=== PATIENT | male | born 1955 | race Caucasian/White ===

== ENCOUNTER 2016-10-26 05:38 | Day surgery (SDC) | payer BC ==
[~2016-10-26] VITALS: Ht 170.2 cm; Wt 78.0 kg
[2016-10-26] VITALS (13 sets, daily range): BP systolic 142–161; BP diastolic 72–91; PULSE 68–83; RESP 16–20; TEMP 97.7–98.8; O2SAT 95–97
[2016-10-26] MEDS ORDERED: ASPI81CH CHEW (05:51)
[2016-10-26] MEDS ORDERED: VITA1000 PO (05:51)
[2016-10-26] MEDS ORDERED: FURO1TAB62 PO (05:51)
[2016-10-26] MEDS ORDERED: AZOR5TAB2 PO (05:51)
[2016-10-26 07:05] LABS: AUTOMATED NEUTROPHIL # 4.4 TH/MM3 (1.8-7.7); BASOPHIL # 0.1 TH/MM3 (0-0.2); BASOPHIL % 0.9 % (0.0-2.0); EOSINOPHIL # 0.2 TH/MM3 (0-0.4); HEMATOCRIT 43.2 % (39.0-51.0); HEMO FLAGS DIFF FINAL; LYMPH % 33.9 % (9.0-44.0); LYMPHOCYTE # 2.8 TH/MM3 (1.0-4.8); MEAN CELL VOLUME 96.1 FL (80.0-100.0); MEAN CORPUSCULAR HEMOGLOBIN 33.1 PG (27.0-34.0); MEAN CORPUSCULAR HGB CONC 34.4 % (32.0-36.0); MONO % 10.5 % (0.0-8.0); NEUT % 52.7 % (16.0-70.0); PLATELET COUNT 335 TH/MM3 (150-450); RED CELL DISTRIBUTION WIDTH 12.2 % (11.6-17.2); WHITE BLOOD COUNT 8.3 TH/MM3 (4.0-11.0)
[2016-10-26] MEDS ORDERED: HEPARIN-NS/PF INJ 500 ML ONE (07:10)
[2016-10-26 07:11] LABS: APTT (PATIENT) 26.9 SEC (24.3-30.1); INTERNATIONAL NORMALIZED RATIO 0.9 RATIO
[2016-10-26] MEDS ORDERED: MIDAZOLAM HCL 2 MG/2 ML VIAL ONE (07:25)
[2016-10-26 07:27] LABS: BICARBONATE 24.6 MEQ/L (21.0-32.0)
[2016-10-26] MEDS ORDERED: HEPARIN SODIUM - IV 10,000 UNITS/10 ML VIAL ONE (07:52)
[2016-10-26] MEDS ORDERED: TIROFIBAN INFUSION INJ 250 ML IV ONE (08:11)
[2016-10-26] MEDS ORDERED: CLOPIDOGREL 300 MG TAB ONE (08:14)
[2016-10-26] MEDS ORDERED: TIROFIBAN INFUSION INJ 250 ML IV SCH (08:21)
--- NOTE | 2016-10-26 08:29 | CATHPROC ---
[place] HIS Report Study Information Study Number Admission Scheduled Start Study Start [id number] Oct 26 2016 5:38AM 10/26/2016 Oct 26 2016 6:55AM [place] Service Cardiac Catheterization Admit Source Facility Department Other [facility] Physician and Clinical Staff Initial Wagner Noel Development Specialist Romario Botello,CROW Other cathlab, cathlab Recorder Rola Delgado,JUNIOR NETWORK ADMINISTRATOR TECH2 Scrub Jayce Dodson RCIS(BS) Procedures Performed Procedure Location (Site) Vessel Name Coronary Angiograms LCA Left Coronary Coronary Angiograms RCA Right Coronary Drug Eluting Inflatio LAD Mid Left Coronary LV Gram-hand inj. LV LV Ventricle PTCA LAD Mid Left Coronary Wire insertion Fem Art (right) Femoral Art Equipment Time Gear Tester Description Size Mfg Part Number Used/Scraped [id number] 07:52 [employer] WIRE, ASAHI PROWATER 180CM 180CM Used *[id number] CATHETER, FR5 SWAN YEFRI 07:15 MOGL FR 5 [id number] *[id number] Used MONITOR TRANSDUCER, TRUWAVE [id number] 07:15 [place] * Used W/STOCKCOCK *[id number] 538-420 *[id number] 538-421 *[id number] *[id number] 07:15 [employer]ely[employer] INDUSTRIES PACK, CCL CUSTOM * Used *[id number] 07:15 [employer]x PACER PEN, SKIN DUAL W/ RULER * Used *[id number] 07:56 [employer] BALLOON, 2.5 X 12MM EUPHORA 12MM Used *[id number] 08:05 [employer] STENT, 2.5 18 INTEGRITY 2.5 18 Used *[id number] 08:01 [employer] MEDICAL 30 LARISA INDEFLATOR Used *[id number] 07:40 [employer] MEDICAL SHEATH, FR5.5 PRELUDE 11CM FR 5 [id number] Used [id number] 07:52 [employer] MEDICAL SHEATH, FR6.5 PRELUDE 11CM FR 6.5 [id number] Used *[id number] 07:15 [employer] MEDICAL WIRE, 3MMJ .035 180CM 180CM Used *[id number] 07:15 NAMIC MANIFOLD, 4 PORT * Used *[id number] 07:15 [employer]COM[employer] OMNIPAQUE, 350 MG, 150ML 150ML [id number] Used [id number] 07:15 [employer] MEDICAL BLANKET,WARM AIR CCL * Used *[id number] 07:15 TERUMO MEDICAL SHEATH, FR4 TERUMO (10CM) FR 4 [id number] Used Equipment Model, Serial, Lot Number and Expiration Data Description Model Number Serial Number Lot Number Expiration Date SHEATH, FR6.5 PRELUDE 11CM [id number] 09-17-2019 STENT, 2.5 18 INTEGRITY [id number] 10-12-2017 History: Current Medications Medication Dosage/Unit Route Frequency Last Date/Time Taken LASIX ASA History: Allergies Allergy Reaction No Known Allergies History: Risk Factors Family History of Hypertension Dyslipidemia Previous OH Previous Heart Failure Premature CAD Yes No No No No Prior Valve Prior PCI Prior CABG Surgery No No No Cerebrovascular Peripheral Artery Chronic Lung On Dialysis Diabetes Disease Disease Disease No No No Yes No History: Symptoms/Diagnosis Selection Items SOB History: Stress Tests Stress or Imaging Studies Performed Yes Standard Exercise Stress Test No Stress Echo No Stress Test SPECT No Stress Test CMR Stress Test CMR Result Stress Test CMR Ischemia Risk/Extent Yes Positive High Cardiac CTA Coronary Calcium Score No No History: Other Current Smoker Method Quit Packs a Day Years Used Pack Years No Cigarettes 31 Years Ago 2 15 30 Labs Hgb (g/dl) Hct (%) RBC (MIL/MM3) WBC (l/cumm) Platelets (thousands) 12.00-18.00 37.00-55.00 4.80-6.20 4.80-10.80 140.00-450.00 14.9 43.2 4.5 8.3 335 Glucose (mg/dl) BUN (mg/dl) Creatinine (mg/dl) BUN:Creatinine (1:x) 60.00-110.00 8.00-20.00 0.10-9.00 10.00-20.00 107 17 1.1 15.5 Na (meq/l) K (meq/l) Cl (meq/l) CO2 (mmol/L) Ca (mg/dl) 138.00-146.00 3.80-5.10 101.00-111.00 23.00-30.00 9.00-10.50 130 4 94 24.6 8.8 PT (sec) PTT (sec) INR (PTT:PT) 9.40-11.40 25.10-32.70 0.50-2.00 10 26.9 0.9 Medication Medication Total Dose (Bolus/Oral) Medication Total Dosage/Unit 1% XYLOCAINE 20 mL AGGRASTAT BOLUS 37.5 meq/kg HEPARIN 5300 units PLAVIX 600 mg Medications (Bolus/Oral) Medication Time Given Dosage/Unit Administered By Reason 1% XYLOCAINE 10/26/2016 7:37:56 AM 20 mL Wagner Cook 20 mL 1% XYLOCAINE given in lab by Wagner Cook in Right Groin via Subcutaneous. Ordered by Wagner Sharma. HEPARIN 10/26/2016 7:53:17 AM 5300 units Romario Botello 5300 units HEPARIN given in lab by Romario Botello RN in Left Antecubital via Peripheral IV. Ordered by Wagner Cook. AGGRASTAT BOLUS 10/26/2016 8:15:43 AM 37.5 meq/kg Romario Botello 37.5 meq/kg AGGRASTAT BOLUS given in lab by Romaroi Botello RN in Left Antecubital via Peripheral IV. Amount given = 2853.75 meq. Ordered by Wagner Cook. PLAVIX 10/26/2016 8:18:30 AM 600 mg Romario Botello 600 mg PLAVIX given in lab by Romario Botello RN via Oral. Ordered by Wagner Cook. Medication (Drip) Medication Time Given Dosage/Unit Concentration/Unit Diluent (ml) Solution AGGRASTAT DRIP 10/26/2016 8:17:09 AM 0.148 mcg/kg/min 12.5 mg 250 NaCl .9 0.148 mcg/kg/min AGGRASTAT DRIP given in lab by Romario Botello RN in Left Antecubital via Peripheral IV. Pump/Drip Flow = 13.5 ml/hr using NaCl .9 with a concentration of 12.5 mg in 250 ml. Ordered by Wagner Cook. IV Solutions 10/26/2016 7:13:40 AM 0 mL (IV) 500 NaCl .9 IV Solutions given in lab by Romario Botello RN in Left Antecubital via Peripheral IV. Pump/Drip Flow = 20 ml/hr using NaCl .9. Ordered by Wagner Cook. Initial Case Assessment Cardiovascular HR NIBP 69 137/84 Edema Present Skin color Skin None Normal Warm Dry Circulatory - Right Pulses Dorsalis Pedis Femoral 3 3 Scale (0,1,2,3,4,d) Circulatory - Left Pulses Dorsalis Pedis Femoral 3 3 Scale (0,1,2,3,4,d) Neurological State Oriented to time-place- Alert Moves all extremities person Respiration - General Respiration Rate SpO2 (%) (B/min) 15 94 Final Case Assessment Cardiovascular HR NIBP 84 146/92 Edema Present Skin color Skin None Normal Warm Dry Circulatory - Right Pulses Dorsalis Pedis Femoral 3 3 Scale (0,1,2,3,4,d) Circulatory - Left Pulses Dorsalis Pedis Femoral 3 3 Scale (0,1,2,3,4,d) Neurological State Oriented to time-place- Alert Moves all extremities person Respiration - General Respiration Rate SpO2 (%) (B/min) 15 94 Chronological Log Time Study Chronological Log 7:00:09 Patient arrived via Bed. 7:06:10 Patient Name, D.O.B, / Armband Verified By R.N. 7:06:11 Consent signed by the physician and the patient and verified by the [facility] staff. Vitals capture started with the following parameters, Patient=Adult, Interval=15 min, Initial P uqoyqjq=829 mmHg, 7:13:03 Deflation Rate=5 mmHg 7:13:32 Pre-op and post- op instructions given; patient acknowledges understanding of instructions. 7:13:34 Patient has been NPO for More than 6Hrs. 7:13:35 NO Skin Breakdown- 7:13:36 Patient Warmer Placed on the Table. 7:13:39 A # 20 IV was noted in the Antecubital (left). Grade = 0 IV Solutions given in lab by Romario Botello, RN in Left Antecubital via Peripheral IV. Pump/Dri p Flow = 20 ml/hr using 7:13:40 NaCl .9. Ordered by Wagner Cook. 7:13:41 HR=69 bpm, JUVR=388/84 mmhg, SpO2=94.0 %, Resp=15 B/min, Pain=0, Sameer=10, Lindsay=2 7:13:41 History and physical on the chart or being dictated. Assessment: Initial Case, HR=69 BPM, FYIL=535/84 mmhg, Edema=None, Color=Normal, Skin = Warm, D ry Right Pulses: Robbie Ped=3, Femoral=3 7:13:43 Left Pulses: Robbie Ped=3, Femoral=3 Neurological: State=Alert, Ox3, GOMEZ Respiration: Resp=15 B/min, SpO2=94 % 7:18:40 HR=67 bpm, ABTB=809/80 mmhg, SpO2=93.0 %, Resp=12 B/min, Pain=0, Sameer=10, Lindsay=2 7:19:25 Bilateral groins prepped with 2% chlorhexidine, and with a 3 min. waiting time. 7:23:39 HR=69 bpm, IOLT=464/85 mmhg, SpO2=93.0 %, Resp=16 B/min, Pain=0, Sameer=10, Lindsay=2 7:25:09 Pressure channel 1 zeroed. 7:28:42 HR=73 bpm, HNXT=701/76 mmhg, SpO2=91.0 %, Resp=11 B/min, Pain=0, Sameer=10, Lindsay=2 7:29:08 Reference ECG taken 7:33:43 HR=62 bpm, DDTQ=455/77 mmhg, SpO2=91.0 %, Resp=11 B/min, Pain=0, Sameer=10, Lindsay=2 Time Out. Correct patient, correct procedure,correct physician, ,power injector not loaded with contrast with surgical 7:37:38 team present. Time Out Concurred by MD, individual staff in procedure 7:37:54 Case Start 20 mL 1% XYLOCAINE given in lab by Wagner Cook in Right Groin via Subcutaneous. Ordered by Joey, 7:37:56 Wagner. 7:38:36 HR=72 bpm, DCRM=091/82 mmhg, SpO2=93.0 %, Resp=14 B/min, Pain=0, Sameer=10, Lindsay=2 7:39:20 Access site was Right Femoral Vein. A SHEATH, FR5.5 PRELUDE 11CM FR 5 was advanced into the Fem Vein (right) using the Modified Seld eva 7:39:30 technique. 7:41:19 Access site was Left Femoral Artery. 7:41:24 A SHEATH, FR4 TERUMO (10CM) FR 4 was advanced into the Fem Art (right) using the Modified Se boyd technique. 7:41:47 A CATHETER, FR5 SWAN YEFRI MONITOR FR 5 was inserted via Fem Vein (right) Recorded Pressure: PCW, HR=70, Condition=Condition 1 7:42:49 (Pulmonary Capillary Wedge) PCW 18/16/15 Recorded Pressure: MPA, HR=76, Condition=Condition 1 7:43:08 (Main Pulmonary Artery) MPA 37/17/25 7:43:43 HR=77 bpm, WVCZ=763/75 mmhg, SpO2=92.0 %, Resp=12 B/min, Pain=0, Sameer=10, Lindsay=2 Recorded Pressure: RV, HR=72, Condition=Condition 1 7:43:58 (Right Ventricle) RV 40/6/12 Recorded Pressure: RA, HR=82, Condition=Condition 1 7:44:21 (Right Atrium) RA 11// 7:45:16 Saturation: Site=Ao (Aorta) , O2=95.3 %, Hgb=14.9 gm/dl, Condition=Condition 1. Used in calc ulation. 7:45:32 Mclain Yefri Catheter Removed 7:45:34 Saturation: Site=PA (Pulmonary Artery) , O2=72.6 %, Hgb=14.9 gm/dl, Condition=Condition 1. U sed in calculation. 7:45:56 Saturation: Site=RA (Right Atrium) , O2=74.7 %, Hgb=14.9 gm/dl, Condition=Condition 1. Used in calculation. A JR 4.0 INFINITI CATHETER FR 4 was advanced over a wire. OMNIPAQUE, 350 MG, 150ML 150ML was use d for 7:46:25 injections. Recorded Pressure: LV, HR=77, Condition=Condition 1 7:47:17 (Left Ventricle) LV 136/7/15 Recorded Pressure: LV, Ao, HR=70, Condition=Condition 1 7:47:33 (Left Ventricle) LV 131/5/22, (Aorta) Ao 129/68/93 7:47:35 The LV was manually injected with 10 cc's and visualized. OMNIPAQUE, 350 MG, 150ML 150ML use d. 7:48:10 The RCA was injected and visualized at various angles. OMNIPAQUE, 350 MG, 150ML 150ML used. Recorded Pressure: Ao, HR=75, Condition=Condition 1 7:48:14 (Aorta) Ao 135/77/101 7:48:42 HR=88 bpm, HWIC=573/85 mmhg, SpO2=92.0 %, Resp=12 B/min, Pain=0, Sameer=10, Lidnsay=2 7:49:20 Catheter was removed A JL 4.0 INFINITI CATHETER FR 4 was advanced over a wire. OMNIPAQUE, 350 MG, 150ML 150ML was use d for 7:49:42 injections. 7:50:05 The LCA was injected and visualized at various angles. OMNIPAQUE, 350 MG, 150ML 150ML used. 7:52:36 Catheter was removed A XB 3.5 GUIDE CATHETER FR 6 was advanced over a wire. OMNIPAQUE, 350 MG, 150ML 150ML was used f or 7:52:37 injections. A SHEATH, FR6.5 PRELUDE 11CM FR 6.5 was exchanged in the Fem Art (right). This was necessary in order for 7:53:13 catheter support. 5300 units HEPARIN given in lab by Romario Botello, RN in Left Antecubital via Peripheral IV. Ord ered by Joey, 7:53:17 Wagner. 7:53:43 HR=81 bpm, ECIX=337/84 mmhg, SpO2=93.0 %, Resp=14 B/min, Pain=0, Sameer=10, Lindsay=2 7:56:11 A WIRE, ASAHI PROWATER 180CM 180CM was inserted via Fem Art (right). 7:57:14 Interventional wire has crossed the lesion 7:58:21 A BALLOON, 2.5 X 12MM EUPHORA 12MM was inserted over WIRE, ASAHI PROWATER 180CM 180CM via th e LAD Mid. 7:58:42 XK=538 bpm, RCWP=070/78 mmhg, SpO2=93.0 %, Resp=12 B/min, Pain=0, Sameer=10, Lindsay=2 7:59:02 Activated Clotting Time Drawn A BALLOON, 2.5 X 12MM EUPHORA 12MM over a WIRE, ASAHI PROWATER 180CM 180CM in the LAD Mid was in flated 8:00:36 using a 30 LARISA INDEFLATOR at 6 larisa for 10 sec. A BALLOON, 2.5 X 12MM EUPHORA 12MM over a WIRE, ASAHI PROWATER 180CM 180CM in the LAD Mid was in flated 8:01:45 using a 30 LARISA INDEFLATOR at 5 larisa for 10 sec. A BALLOON, 2.5 X 12MM EUPHORA 12MM over a WIRE, ASAHI PROWATER 180CM 180CM in the LAD Mid was in flated 8:02:27 using a 30 LARISA INDEFLATOR at 5 larisa for 10 sec. A BALLOON, 2.5 X 12MM EUPHORA 12MM over a WIRE, ASAHI PROWATER 180CM 180CM in the LAD Mid was in flated 8:02:59 using a 30 LARISA INDEFLATOR at 10 larisa for 7 sec. 8:03:43 HR=74 bpm, HDEE=209/89 mmhg, SpO2=93.0 %, Resp=14 B/min, Pain=0, Sameer=10, Lindsay=2 8:03:43 Balloon Removed. 8:04:36 ACT (Normal Range 90-180) = 284 A STENT, 2.5 18 INTEGRITY 2.5 18 was advanced through a XB 3.5 GUIDE CATHETER FR 6 over a WIRE, ASAHI 8:04:53 PROWATER 180CM 180CM. A STENT, 2.5 18 INTEGRITY 2.5 18 was deployed using a 30 LARISA INDEFLATOR at 10 atmospheres for 10 seconds in 8:05:55 the LAD Mid. 8:06:33 Delivery device removed 8:07:07 Wire removed 8:07:08 Catheter was removed PCI QA completed: Pre-Vinnie - 3, Post Vinnie - 3, Type - ~TYPE~, Length - 16 mm, Morphology - ~MORP HOLOGY~, 8:07:27 Indications - Lesion > 50 non-stem, Pre-Stenosis - 95% and Post Stenosis - 0%. 8:07:49 PCI QA obtained from Inventory Management Specialist 8:07:52 Case End 8:08:08 Catheter(s) removed without difficulty 8:08:10 In the Fem Art (right) the SHEATH, FR6.5 PRELUDE 11CM FR 6.[address] by Wagner Pacheco. 8:08:20 In the Fem Vein (right) the SHEATH, FR5.5 PRELUDE 11CM FR [address] by Wagner Cook. 8:08:42 HR=80 bpm, BLTH=467/88 mmhg, SpO2=94 %, Resp=12 B/min, Pain=0, Sameer=10, Lindsay=2 8:13:41 HR=84 bpm, OILB=642/92 mmhg, SpO2=94.0 %, Resp=15 B/min, Pain=0, Sameer=10, Lindsay=2 Assessment: Final Case, HR=84 BPM, MPDG=719/92 mmhg, Edema=None, Color=Normal, Skin = Warm, Dry Right Pulses: Robbie Ped=3, Femoral=3 8:15:24 Left Pulses: Robbie Ped=3, Femoral=3 Neurological: State=Alert, Ox3, GOMEZ Respiration: Resp=15 B/min, SpO2=94 % 8:15:34 Vitals capture stopped. 37.5 meq/kg AGGRASTAT BOLUS given in lab by Romario Botello RN in Left Antecubital via Periphera l IV. Amount given = 8:15:43 2853.75 meq. Ordered by Wagner Cook. 0.148 mcg/kg/min AGGRASTAT DRIP given in lab by Romario Botello RN in Left Antecubital via Perip heral IV. Pump/Drip 8:17:09 Flow = 13.5 ml/hr using NaCl .9 with a concentration of 12.5 mg in 250 ml. Ordered by Wagner Cook. 8:17:42 A Left and Right Heart Cath was performed. 8:17:47 Contrast Scanned 8:17:50 Implantable Device card placed in patient's chart. 8:17:51 Bedside Report will be given. 8:18:06 Clinical correlaton risk stratification. 8:18:30 600 mg PLAVIX given in lab by Romario Botello RN via Oral. Ordered by Wagner Cook. 8:18:39 Patient moved to carrier clinic End Study - Contrast Media Used In Study Contrast Total Opened (mL) Total Used (mL) Total Wasted (mL) Omnipaque 150 150 0 End Study - Maximum Contrast Load Max Contrast Load (mL) 345.9 End Study - Radiation Exposure Fluoro Time (minutes) 7.7 End Study - Patient Disposition Complications Transferred To Interventional Outcome No Telemetry Bed successful
[2016-10-26] MEDS ORDERED: SODIUM CHLORIDE 0.9% FLUSH 10 ML FLUSH IV FLUSH PRN (08:30)
[2016-10-26] MEDS ORDERED: MISC INFORMATION XX ONE (08:30)
[2016-10-26] MEDS ORDERED: CLOPIDOGREL 300 MG TAB PO ONE (09:00)
[2016-10-26] MEDS ORDERED: ASPIRIN 81 MG CHEW TAB PO SCH (09:00)
[2016-10-26] MEDS ORDERED: LORazepam 2 MG/ML VIAL ONE (10:31)
[2016-10-26] MEDS ORDERED: IOHEXOL 350 MG/ML 100 ML BTL (for Cath Lab) OTHER ONE (10:43)
[2016-10-26] MEDS ORDERED: IOHEXOL 350 MG/ML 50 ML BTL (for Cath Lab) OTHER ONE (10:43)
[2016-10-26] MEDS ORDERED: LORazepam 2 MG/ML VIAL IV PUSH ONE (11:45)
--- NOTE | 2016-10-26 16:49 | EKG ---
Date Performed: 10/26/2016 Time Performed: 09:38:26 PTAGE: 61 years EKG: Sinus arrhythmia Low QRS voltages in limb leads Borderline ECG PREVIOUS TRACING : 10/26/2016 06.17 Compared to prior tracing no significant change DOCTOR: Kike White Interpretating Date/Time 10/26/2016 16:48:43
--- NOTE | 2016-10-26 17:18 | EKG ---
Date Performed: 10/26/2016 Time Performed: 06:17:38 PTAGE: 61 years EKG: Sinus rhythm Rightward axis Low QRS voltages in limb leads Borderline ECG NO PREVIOUS TRACING DOCTOR: Kike White Interpretating Date/Time 10/26/2016 17:17:50
[2016-10-26] MEDS: SODIUM CHLORIDE 0.9% FLUSH 10 ML FLUSH IV FLUSH SCH (20:56)
[2016-10-26] MEDS: CARVEDILOL 3.125 MG TAB PO SCH (20:56)
[2016-10-26] MEDS ORDERED: ATORVASTATIN 10 MG TAB PO SCH (21:00)
--- NOTE | 2016-10-26 21:28 | MA ---
cc: MOSES RODARTE M.D. DATE 10/26/16 PROCEDURE PERFORMED Right heart catheterization, left heart catheterization, left ventriculography, coronary angiography and PCI bare metal stent of the mid-LAD. INDICATION Large fixed defect in the anterior wall and inferoseptal wall, EF 79% by gated SPECT, high-risk nuclear stress test, anginal equivalent, unstable angina. [place] Cardiovascular Society Class III angina. [place] Heart Association class III congestive heart failure and coronary artery disease. PROCEDURE IN DETAIL The patient was brought to the cardiac catheterization laboratory, prepped and draped in the usual sterile fashion. 10 cc of 1% lidocaine was used to locally anesthetize the right common femoral artery and right common femoral vein. 5-[place] sheath placed in the right common femoral vein, 4-[place] sheath placed in the right common femoral artery. Right heart catheterization was performed first with the following findings: Pulmonary capillary wedge pressure 18/16-15. PA pressure 37/17-25. RV pressure 40/6-12. RA pressure 11/10-9. The FA sat 95.3% on room air. PA sat 72.6 on room air. RA sat 74.7% on room air. The cardiac output by Seven 5.1 liters per minute. Cardiac index by Seven 2.7 liters per meter squared per minute and SVR 1440.6 dynes. Left heart catheterization was then performed with a 4-Saudi Arabian JR-4 and JL-4 diagnostic catheter with the following findings: LV pressures 130/16-17. Ejection fraction is 60%. Right coronary is dominant, has a proximal 70% stenosis. The left main coronary artery has no significant disease angiographically. Left circumflex has no significant disease angiographically. Ramus intermedius vessel is a large vessel approaching apex. No significant disease angiographically. First obtuse marginal vessel is a small vessel, tortuous with no significant disease angiographically. Remainder of the AV groove left circumflex vessel was a small vessel with no significant obstructive disease. LAD has an ostial of 20% stenosis. The mid segment has a long 95% stenosis just after the first diagonal artery. LAD is large and transapical. First diagonal artery is a medium-sized vessel with an ostial of 40-50% stenosis. It is a very tortuous vessel with a 90 degrees bend off the LAD and then within 8 mm a secondary 90 degrees bend. 4-Saudi Arabian sheath exchanged for a 6-Saudi Arabian sheath. 70 cc of heparin was given, ACT was 284. 6-Saudi Arabian XB 3.5 guide, 0.014 Prowater guidewire and a 2512 Euphora balloon were used to predilate the lesion four inflations up to 7 atmospheres up to 20 seconds, then placed a 215 18 integrity stent back to the first diagonal artery for one inflation 10 atmospheres for 20 seconds. Stenosis went from 95% to 0% with ROSY-III flow. Also note ____ deployed the balloon across the lesion, there was no flow of dye around the balloon, again suggesting high-grade lesion. CONCLUSION 1. [place] Heart Association class III symptoms, anginal equivalent unstable angina. [place] Cardiovascular Society class III symptoms, high-risk nuclear stress test, large fixed defect in the anterior wall with culprit long 95% stenosis in the mid-LAD. 2. Otherwise, 70% stenosis in the proximal right coronary artery which is the dominant vessel. 3. Normal LV systolic function, ejection fraction 60%. 4. Mildly elevated right heart pressures as detailed above. 5. Successful PCI bare metal stent of the mid-LAD from 95% to 0% with ROSY III flow. 6. Recommend Plavix at 600 milligrams p.o., ___ 75 milligrams a day for 12 to 15 months, aspirin 162 milligrams daily. Aggrastat drip per protocol. Will also evaluate the patient's lipids and treat ____ guidelines. MD TREVOR Fulton/JAYESH /8:15 AM /8:58 PM
[2016-10-27] VITALS (9 sets, daily range): BP systolic 123–145; BP diastolic 71–75; PULSE 69–78; RESP 18; TEMP 98.1–98.6; O2SAT 94–97
[2016-10-27 04:30] LABS: AUTOMATED NEUTROPHIL # 7.7 TH/MM3 (1.8-7.7); BASOPHIL # 0.1 TH/MM3 (0-0.2); BASOPHIL % 1.1 % (0.0-2.0); EOSINOPHIL # 0.1 TH/MM3 (0-0.4); EOSINOPHIL % 0.5 % (0.0-4.0); HEMO FLAGS DIFF FINAL; LYMPH % 14.5 % (9.0-44.0); LYMPHOCYTE # 1.5 TH/MM3 (1.0-4.8); MEAN CELL VOLUME 95.5 FL (80.0-100.0); MEAN CORPUSCULAR HEMOGLOBIN 33.8 PG (27.0-34.0); MEAN CORPUSCULAR HGB CONC 35.4 % (32.0-36.0); MONO % 9.6 % (0.0-8.0); NEUT % 74.3 % (16.0-70.0); PLATELET COUNT 273 TH/MM3 (150-450); RED BLOOD COUNT 3.77 MIL/MM3 (4.50-5.90); RED CELL DISTRIBUTION WIDTH 12.2 % (11.6-17.2); WHITE BLOOD COUNT 10.3 TH/MM3 (4.0-11.0)
[2016-10-27 05:01] LABS: BICARBONATE 24.1 MEQ/L (21.0-32.0); POTASSIUM 4.2 MEQ/L (3.5-5.1)
[2016-10-27] MEDS: CARVEDILOL 3.125 MG TAB PO SCH (08:38)
[2016-10-27] MEDS: SODIUM CHLORIDE 0.9% FLUSH 10 ML FLUSH IV FLUSH SCH (09:00)
[2016-10-27] MEDS ORDERED: CLOPIDOGREL 75 MG TAB PO SCH (09:00)
[2016-10-27] MEDS ORDERED: ATOR40TA16 PO (10:58)
[2016-10-27] MEDS ORDERED: ASPI81CH CHEW (10:58)
[2016-10-27] MEDS ORDERED: CLOP75TA PO (10:58)
--- NOTE | 2016-10-28 09:51 | EKG ---
Date Performed: 10/27/2016 Time Performed: 06:37:02 PTAGE: 61 years EKG: Sinus rhythm Rightward axis Low QRS voltages in limb leads Borderline ECG PREVIOUS TRACING : 10/26/2016 09.38 DOCTOR: Antonio Kerns Interpretating Date/Time 10/28/2016 09:40:55
== END 2016-10-27 11:12 | disposition home or self-care (01) ==
LOC: HDOC 05:38 → HDIC 05:38 → HCIS 12:03 → HDOC 10-27 11:12
PROVIDERS: ATTEND Internal Medicine Interventional Cardiology
DX: I25.110 Atherosclerotic heart disease of native coronary artery with unstable angina pectoris (principal); I50.9 Heart failure, unspecified; I45.4 Nonspecific intraventricular block; J44.9 Chronic obstructive pulmonary disease, unspecified; I10 Essential (primary) hypertension; Z01.818 Encounter for other preprocedural examination
CPT/HCPCS: 80048; 80061; 82550; 82810; 85025; 85610; 85730; 92928; 93005; 93460; C1725; C1769; C1876; C1887; C1893; J1644; J2060; J2250; J3010; J3246; Q9967

== ENCOUNTER 2018-01-06 08:37 | Inpatient (IN) ==
[2018-01-06] MEDS ORDERED: Pantoprazole Inj 40 MG Vial IV.PUSH ONE (09:11)
[2018-01-06] MEDS ORDERED: Sod Chloride 0.9% Inj 1,000 ML IV.SIG ONE (09:11)
[2018-01-06 09:37] LABS: Baso # (Auto) 0.1 th/mm3 (0.0-0.2); Baso % (Auto) 0.5 % (0.0-2.0); Eos % (Auto) 0.1 % (0.0-4.0); Hematocrit 26.1 % (39.0-51.0); Hemoglobin 8.6 gm/dL (13.0-17.0); Mean Corpuscular HGB Conc 32.8 % (32.0-36.0); Mean Corpuscular Hemoglobin 31.3 pg (27.0-34.0); Mean Corpuscular Volume 95.4 fL (80.0-100.0); Mean Platelet Volume 7.6 fL (7.0-11.0); Mono # (Auto) 1.4 th/mm3 (0.0-0.9); Mono % (Auto) 7.4 % (0.0-8.0); Neut # (Auto) 14.8 th/mm3 (1.8-7.7); Platelet Count 351 th/mm3 (150-450); Red Blood Count 2.74 mil/mm3 (4.50-5.90); Red Cell Distribution Width 16.8 % (11.6-17.2); White Blood Count 18.3 th/mm3 (4.0-11.0)
--- NOTE | 2018-01-06 09:42 | ED ---
HPI General Chief Complaint: Syncope Stated Complaint: medical Time Seen by Provider: 01/06/18 09:11 Source: patient and EMS Mode of arrival: EMS Limitations: no limitations History of Present Illness HPI narrative: 62-year-old male patient with history of alcoholism, atrial fibrillation, presents to the ER today brought in by EMS because he states he has been feeling well for several days, running fevers, had an episode of vomiting last night, diarrhea with dark stools for the last 2 days, feeling dizzy, and this morning had a syncopal episode. He denies any chest pains, current shortness of breath, abdominal pains, or other symptoms. He states he is feeling fairly lightheaded still. He had a episode of incontinence with the episode. He states that he did not drink today. He states he does feel shaky, but has not had seizures in the past. Related Data Allergies Allergy/AdvReac Type Severity Reaction Status Date / Time No Known Allergies Allergy Uncoded 10/26/16 05:50 Review of Systems ROS: all other systems reviewed are negative [facility] Medical History Medical History A-fib (Acute) Emphysema of lung (Acute) HTN (hypertension) (Acute) Surgical History Surgical History No history of previous surgery (Acute) Stented coronary artery (Acute) Social History Social History Substance History: No History of Abuse Smoking Status: Former smoker How Often Do You Have a Drink Containing Alcohol: 4 or more times a week Recent Travel in [facility] within the Last 8 Weeks: No Recent Out of Country Travel within the Last 8 Weeks: No Immunization History Tetanus Immunization: Unsure Exam Narrative Exam Narrative: GENERAL: Well-developed elderly white male patient currently in moderate distress. Awake and oriented 3. SKIN: Focused skin assessment warm/dry. HEAD: Atraumatic. Normocephalic. EYES: Pupils equal and round. No scleral icterus. No injection or drainage. Conjunctiva is pale. ENT: No nasal bleeding or discharge. Mucous membranes pink and moist. NECK: Trachea midline. No JVD. Supple. CARDIOVASCULAR: Irregularly irregular. RESPIRATORY: No accessory muscle use. Clear to auscultation. Breath sounds equal bilaterally. GASTROINTESTINAL: Abdomen soft, non-tender, nondistended. Hepatic and splenic margins not palpable. MUSCULOSKELETAL: No obvious deformities. No clubbing. No cyanosis. No edema. RECTAL EXAM: No masses or tenderness, stool is dark, Hemoccult positive. NEUROLOGICAL: Awake and alert. No obvious cranial nerve deficits. Motor grossly within normal limits. Normal speech. PSYCHIATRIC: Appropriate mood and affect; insight and judgment normal. Procedures Hemaprompt Stool Procedural Steps Taken: specimen placed in appropriate test area, developer placed on specimen and control areas and controls appropriately positive and negative Hemaprompt Stool Result: positive Course Initial Documented Vital Signs Temperature 97.5 F L 01/06/18 08:46 Pulse Rate 95 H 01/06/18 08:46 Respiratory Rate 26 H 01/06/18 08:46 Blood Pressure 131/61 01/06/18 08:46 Pulse Oximetry 99 01/06/18 08:46 Last Documented Vital Signs Temperature 97.5 F L 01/06/18 08:46 Pulse Rate 95 H 01/06/18 08:46 Respiratory Rate 26 H 01/06/18 08:46 Blood Pressure 131/61 01/06/18 08:46 Pulse Oximetry 99 01/06/18 08:46 Medical Decision Making MDM Narrative Medical decision making narrative: CT other and was negative for any signs of acute intracranial injuries. Patient is Hemoccult positive, and lab work shows low hemoglobin compared to previous hemoglobins, 2 units of PRBCs were ordered for the patient. Patient denied being on any blood thinners. Protonix was also given in the ER. The rest of the lab work was fairly unremarkable. At this point, plan would be to admit the patient for further treatment. Case was discussed with hospitalist service, Dr. Sun, for admission. Medical Screen Exam Complete: Yes Emergency Medical Condition: Yes Differential Diagnosis Differential Diagnosis: GI bleed versus dehydration versus sepsis versus intracranial injuries Lab Data Result diagrams: 01/06/18:01/06/18:20 Lab Results 01/06/18 01/06/18 01/06/18 Range/Units :06 02: 09:20 WBC 18.3 H (4.0-11.0) th/mm3 RBC 2.74 L (4.50-5.90) mil/mm3 Hgb 8.6 L (13.0-17.0) gm/dL Hct 26.1 L (39.0-51.0) % MCV 95.4 (80.0-100.0) fL MCH 31.3 (27.0-34.0) pg MCHC 32.8 (32.0-36.0) % RDW 16.8 (11.6-17.2) % Plt Count 351 (150-450) th/mm3 MPV 7.6 (7.0-11.0) fL Neut % (Auto) 81.0 H (16.0-70.0) % Lymph % (Auto) 11.0 (9.0-44.0) % Bell % (Auto) 7.4 (0.0-8.0) % Eos % (Auto) 0.1 (0.0-4.0) % Baso % (Auto) 0.5 (0.0-2.0) % Neut # (Auto) 14.8 H (1.8-7.7) th/mm3 Lymph # (Auto) 2.0 (1.0-4.8) th/mm3 Bell # (Auto) 1.4 H (0.0-0.9) th/mm3 Eos # (Auto) 0.0 (0.0-0.4) th/mm3 Baso # (Auto) 0.1 (0.0-0.2) th/mm3 WBC Differential . Differential Comment Auto diff final PT 11.4 (9.8-11.6) sec INR 1.1 Ratio APTT 19.1 L (24.3-30.1) sec Sodium 137 (136-145) meq/L Potassium 3.9 (3.5-5.1) meq/L Chloride 103 (98-107) meq/L Carbon Dioxide 20.1 L (21.0-32.0) meq/L Anion Gap 14 (5-15) meq/L BUN 88 H (7-18) mg/dL Creatinine 1.89 H (0.60-1.30) mg/dL Estimated GFR 36 L (>89) mL/min Random Glucose 145 H (74-106) mg/dL Calcium 8.2 L (8.5-10.1) mg/dL Total Bilirubin 0.3 (0.2-1.0) mg/dL AST 44 H (15-37) U/L ALT 41 (12-78) U/L Alkaline Phosphatase 69 (45-117) U/L Troponin I Less than 0.02 L (0.02-0.05) ng/mL Total Protein 5.6 L (6.4-8.2) g/dL Albumin 2.8 L (3.4-5.0) g/dL Blood Type Blood Type Recheck Antibody Screen 01/06/18 Range/Units 09:20 WBC (4.0-11.0) th/mm3 RBC (4.50-5.90) mil/mm3 Hgb (13.0-17.0) gm/dL Hct (39.0-51.0) % MCV (80.0-100.0) fL MCH (27.0-34.0) pg MCHC (32.0-36.0) % RDW (11.6-17.2) % Plt Count (150-450) th/mm3 MPV (7.0-11.0) fL Neut % (Auto) (16.0-70.0) % Lymph % (Auto) (9.0-44.0) % Bell % (Auto) (0.0-8.0) % Eos % (Auto) (0.0-4.0) % Baso % (Auto) (0.0-2.0) % Neut # (Auto) (1.8-7.7) th/mm3 Lymph # (Auto) (1.0-4.8) th/mm3 Bell # (Auto) (0.0-0.9) th/mm3 Eos # (Auto) (0.0-0.4) th/mm3 Baso # (Auto) (0.0-0.2) th/mm3 WBC Differential Differential Comment PT (9.8-11.6) sec INR Ratio APTT (24.3-30.1) sec Sodium (136-145) meq/L Potassium (3.5-5.1) meq/L Chloride (98-107) meq/L Carbon Dioxide (21.0-32.0) meq/L Anion Gap (5-15) meq/L BUN (7-18) mg/dL Creatinine (0.60-1.30) mg/dL Estimated GFR (>89) mL/min Random Glucose (74-106) mg/dL Calcium (8.5-10.1) mg/dL Total Bilirubin (0.2-1.0) mg/dL AST (15-37) U/L ALT (12-78) U/L Alkaline Phosphatase (45-117) U/L Troponin I (0.02-0.05) ng/mL Total Protein (6.4-8.2) g/dL Albumin (3.4-5.0) g/dL Blood Type B Positive Blood Type Recheck Required Antibody Screen Negative Imaging Data Radiologist's impression: Head CT 01/06/18 09:11 CONCLUSION: No acute intracranial abnormality is identified. . Chest X-Ray 01/06/18 09:14 CONCLUSION: 1. Background changes suggesting a severe emphysema with interstitial changes at the lung bases. 2. Questionable 14 mm nodule in the right lower lung zone. This should be further evaluated with chest CT at some point to evaluate if this represents a true nodule versus overlying bronchovascular structures. Discharge Plan Discharge Disposition Patient Disposition: 30 Still Patient Discharge Condition Condition: Stable Discharge Details Anticipated Discharge Date: 01/06/18 Diagnosis: GI bleed, Anemia, Syncope Physicians Team ED Provider: Kiley Agrawal Primary Care Provider: Casey Egan III Attending Provider: La Sun Other Providers: Marquis Porter Discharge Interventions Interventions: Vital Signs Last Done: 01/06/18 08:46 Status ED Status: Admitted Patient
--- NOTE | 2018-01-06 09:47 | CT ---
EXAM DATE: 01/06/2018 9:42 AM EDT AGE/SEX: 62 years / Male INDICATIONS: Syncopal episode. Laceration to forehead. Nausea, vomiting, diarrhea since yesterday. CLINICAL DATA: This is the patient's initial encounter. Patient reports that signs and symptoms have been present for 1 day and indicates a pain score of 3/10. MEDICAL/SURGICAL HISTORY: Emphysema. Hypertension. Carotid stent. RADIATION DOSE: 34.67 CTDI (mGy) COMPARISON: No prior exams available for comparison. TECHNIQUE: CT of the head without contrast. Using automated exposure control and adjustment of the mA and/or kV according to patient size, radiation dose was kept as low as reasonably achievable to ob tain optimal diagnostic quality images. DICOM format image data is available electronically for revi ew and comparison. FINDINGS: Cerebrum: There is mild generalized atrophy and ventricles are normal given the degree of atrophy. M ild periventricular white matter change is present. No midline shift, mass lesion, hemorrhage or acu te infarction. No extraaxial fluid collections are seen. Posterior Fossa: The cerebellum and brainstem demonstrate no acute abnormality. The 4th ventricle is midline. The cerebellopontine angle is within normal limits. Extracranial: The visualized sinuses are clear. Skull: The calvaria is intact. No skull fracture. CONCLUSION: No acute intracranial abnormality is identified. . Electronically signed by: Todd Matias MD 01/06/2018 9:46 AM EDT
--- NOTE | 2018-01-06 09:49 | XR ---
EXAM DATE: 01/06/2018 9:43 AM EDT AGE/SEX: 62 years / Male INDICATIONS: Palpitations. Patient passed out, fell and hit his head. CLINICAL DATA: This is the patient's initial encounter. Patient reports that signs and symptoms have been present for 1 day and indicates a pain score of 5/10. MEDICAL/SURGICAL HISTORY: Hypertension. None. COMPARISON: No prior exams available for comparison. FINDINGS: Portable AP view of the chest demonstrates a normal size cardiac silhouette. Lungs are mildly underin flated. There is generalized lucency in the upper lung zones bilaterally, left greater than right. In terstitial changes are present at both lung bases. Nodular area overlying the right lower lung zone m easures 1.4 cm. No pleural effusion or pneumothorax is identified. The bones and soft tissues demonst rate no acute finding. CONCLUSION: 1. Background changes suggesting a severe emphysema with interstitial changes at the lung bases. 2. Questionable 14 mm nodule in the right lower lung zone. This should be further evaluated with [facility] CT at some point to evaluate if this represents a true nodule versus overlying bronchovascular str uctures. Electronically signed by: Todd Matias MD 01/06/2018 9:48 AM EDT
[2018-01-06 09:52] LABS: Activated Partial Thrombo Time 19.1 sec (24.3-30.1); INR 1.1 Ratio; Prothrombin Time 11.4 sec (9.8-11.6)
[2018-01-06 10:03] LABS: Alanine Aminotransferase 41 U/L (12-78); Albumin 2.8 g/dL (3.4-5.0); Anion Gap 14 meq/L (5-15); Aspartate Aminotransferase 44 U/L (15-37); Blood Urea Nitrogen 88 mg/dL (7-18); Calcium 8.2 mg/dL (8.5-10.1); Carbon Dioxide 20.1 meq/L (21.0-32.0); Chloride 103 meq/L (98-107); Glomerular Filtration Rate 36 mL/min (>89); Glucose,Random 145 mg/dL (74-106); Potassium 3.9 meq/L (3.5-5.1); Sodium 137 meq/L (136-145)
[2018-01-06 10:08] LABS: Alkaline Phosphatase 69 U/L (45-117); Total Protein 5.6 g/dL (6.4-8.2)
[2018-01-06] MEDS ORDERED: Sodium Chlor 0.9% Inj 250 ML IV.SIG SCH (11:00)
[2018-01-06 12:33] LABS: Bilirubin,Urine Negative (Negative); Clarity,Urine Hazy (Clear); Color,Urine Yellow (Yellw/Straw); Glucose,Urine (UA) Negative (Negative); Hyaline Casts,Urine 22 /lpf (0-3); Leukocyte Esterase,Urine Negative (Negative); Mucus,Urine Few /lpf (Occasional); Nitrite,Urine Negative (Negative); Specific Gravity,Urine 1.014 (1.002-1.035); Squamous Epithelial Cell,Urine <1 /hpf (0-5)
--- NOTE | 2018-01-06 12:49 | XR ---
EXAM DATE: 01/06/2018 12:05 PM EDT AGE/SEX: 62 years / Male INDICATIONS: Left sided rib pain, fall. CLINICAL DATA: This is the patient's initial encounter. Patient reports that signs and symptoms have been present for 1 day and indicates a pain score of 7/10. MEDICAL/SURGICAL HISTORY: None. None. COMPARISON: [facility], CT LUMBAR SPINE W/O CONTRAST, 02/15/2015. . FINDINGS: There is fracturing of the left ninth rib and the seventh right rib. There is a minimal left pleural effusion. The heart size is normal. The lungs are grossly clear. There is severe compression deformit y at the T12 vertebral body. This was present on a prior MRI examination from 02/15/2015. CONCLUSION: Fracturing of the left ninth and right seventh ribs. Electronically signed by: Todd Abdi MD 01/06/2018 12:47 PM EDT
[2018-01-06] MEDS ORDERED: Haloperidol Inj 5 MG/ML Ampul IV.PUSH PRN (13:10)
[2018-01-06] MEDS ORDERED: LORazepam 1 MG Tablet PO PRN (13:10)
--- NOTE | 2018-01-06 13:34 | P.HP ---
History of Present Illness Service: [facility] hospitalist service Primary Care Physician: Casey Egan III, MD Chief Complaint: Generalized weakness syncope History of Present Illness: Patient is a 62-year-old male with known history of CAD status post stent in October 2016, hypertension, history of alcoholic liver disease "hepatitis" who lives with his and apparently for the past 2 days now has not been feeling well described as dizziness lightheadedness with decreased p.o. appetite and chills and fever sensation. Patient also states has been having diarrhea with very black stools for the past 2 days now. This a.m. when he got up and step stepped out of the porch suddenly felt dizzy and passed out. Prior to this initially patient felt nauseated and states that he vomited some small amounts of fluid. EMS was called and patient was brought in here and admitted for further evaluation and management. On initial evaluation also with fever tachycardic with chilly sensation. Patient denies any urinary symptoms denies any cough denies headache. On further history patient states that he was placed on Plavix and was told to stop about a week ago per patient "does not need it anymore". On exam - on telemetry was in atrial fibrillation rhythm patient is not aware of this but nurse confirmed with family who states that patient has history of chronic A. fib Patient drinks alcohol-whiskey water 8-10 glasses every night on a daily basis "I enjoy it as a habit". His last drink was day before yesterday as he stopped he started feeling sick. He also admits to occasional marijuana cocaine use and used the day before he got sick. Inpatient Certification: I certify that the inpatient services were ordered in accordance with Medicare regulations governing the order. 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 Patient has not been drinking since day before yesterday. Patient also admits to occasional marijuana cocaine use before.) - Substance Use History Substance History: No History of Abuse - Substance Use Type Alcohol Status: Active - Travel History Recent Travel in the [place] Within the Last 8 Weeks: No Recent Travel Out of the Country Within the Last 8 Weeks: No - Immunization History Tetanus Immunization: Unsure Medications and Allergies Active Medications: Active Medications Flumazenil (Romazecon Inj) 0.2 mg IV.PUSH Q1M PRN PRN Reason: OVERSEDATION Haloperidol Lactate (Haldol Inj) 1 mg IV.PUSH Q15M PRN PRN Reason: for severe agitation Sodium Chloride (Ns Inj) 250 mls @ 15 mls/hr IV.SIG ONCE KAELA Stop: 01/07/18 03:39 Dextrose/Sodium Chloride (D5w/Normal Saline Inj) 1,000 mls @ 70 mls/hr IV.CONT .[id number] KAELA Lorazepam (Ativan) 1 mg PO Q4H PRN PRN Reason: for CIWA 8-10 Lorazepam (Ativan) 2 mg PO Q2H PRN PRN Reason: for CIWA 11-14 Lorazepam (Ativan Inj) 2 mg IV.PUSH Q1H PRN PRN Reason: for CIWA 15-20 Lorazepam (Ativan Inj) 2 mg IV.PUSH Q15M PRN PRN Reason: for CIWA > 20 Lorazepam (Ativan Inj) 1 mg IV.PUSH Q4H PRN PRN Reason: for CIWA 8-10 Lorazepam (Ativan Inj) 2 mg IV.PUSH Q2H PRN PRN Reason: for CIWA 11-14 Oxycodone/Acetaminophen (Percocet 5/325 Mg) 1 tab PO Q6H PRN PRN Reason: pain 4-10 Last Admin: 01/06/18 12:07 Dose: 1 tab Pantoprazole Sodium (Protonix Inj) 40 mg IV.PUSH Q24H AKELA Allergies Allergy/AdvReac Type Severity Reaction Status Date / Time No Known Allergies Allergy Verified 01/06/18 11:39 Home Medications Medication Instructions Recorded Confirmed Type amlodipine-valsartan 1 tab PO DAILY 01/06/18 01/06/18 History aspirin [Aspirin Low Dose] 81 mg PO DAILY 01/06/18 01/06/18 History atorvastatin 40 mg PO DAILY 01/06/18 01/06/18 History budesonide-formoterol [Symbicort] 2 puff INHALATION HS 01/06/18 01/06/18 History furosemide 60 mg PO DAILY 01/06/18 01/06/18 History Exam Vital signs: Vital Signs 01/06/18 08:46 Temperature 97.5 F L Pulse Rate 95 H Respiratory Rate 26 H Blood Pressure 131/61 Pulse Oximetry 99 Intake & Output 01/05/18 01/06/18 01/06/18 18:59 06:59 18:59 Weight 73.936 kg Narrative: awake and alert, with tremulous anicteric, pale palpebralconjunctivae neck supple lungs- no rales irregularly irregular rhythm, HR 110 abdomen- flabby,s oft, good bowel sounds, " fluid wave extremities no edema neruo exam- non focal Results - Labs CBC & Chem 7: 01/08/18 04:15 01/08/18 04:15 Labs: Laboratory Results - last 24 hr 01/06/18 01/06/18 01/06/18 09:20 09:20 09:20 WBC 18.3 H RBC 2.74 L Hgb 8.6 L Hct 26.1 L MCV 95.4 MCH 31.3 MCHC 32.8 RDW 16.8 Plt Count 351 MPV 7.6 Neut % (Auto) 81.0 H Lymph % (Auto) 11.0 [place] % (Auto) 7.4 Eos % (Auto) 0.1 Baso % (Auto) 0.5 Neut # (Auto) 14.8 H Lymph # (Auto) 2.0 [place] # (Auto) 1.4 H Eos # (Auto) 0.0 Baso # (Auto) 0.1 WBC Differential . Differential Comment Auto diff final PT 11.4 INR 1.1 APTT 19.1 L Sodium 137 Potassium 3.9 Chloride 103 Carbon Dioxide 20.1 L Anion Gap 14 BUN 88 H Creatinine 1.89 H Estimated GFR 36 L Random Glucose 145 H Calcium 8.2 L Total Bilirubin 0.3 AST 44 H ALT 41 Alkaline Phosphatase 69 Troponin I Less than 0.02 L Total Protein 5.6 L Albumin 2.8 L Urine Color Urine Clarity Urine pH Ur Specific [place] Urine Protein Urine Glucose (UA) Urine Ketones Urine Occult Blood Urine Nitrate Urine Bilirubin Urine Urobilinogen Ur Leukocyte Esterase Urine RBC Urine WBC Ur Squamous Epith Cells Hyaline Casts Urine Mucus Micro UA Comment Urine Culture Comments Blood Type Blood Type Recheck Antibody Screen MTS Gel Crossmatch 01/06/18 01/06/18 01/06/18 09:20 12:22 12:55 WBC RBC Hgb Hct MCV MCH MCHC RDW Plt Count MPV Neut % (Auto) Lymph % (Auto) [place] % (Auto) Eos % (Auto) Baso % (Auto) Neut # (Auto) Lymph # (Auto) [place] # (Auto) Eos # (Auto) Baso # (Auto) WBC Differential Differential Comment PT INR APTT Sodium Potassium Chloride Carbon Dioxide Anion Gap BUN Creatinine Estimated GFR Random Glucose Calcium Total Bilirubin AST ALT Alkaline Phosphatase Troponin I Total Protein Albumin Urine Color Yellow Urine Clarity Hazy H Urine pH 5.0 Ur Specific [place] 1.014 Urine Protein Negative Urine Glucose (UA) Negative Urine Ketones Negative Urine Occult Blood Negative Urine Nitrate Negative Urine Bilirubin Negative Urine Urobilinogen Less than 2 Ur Leukocyte Esterase Negative Urine RBC Less than 1 Urine WBC Less than 1 Ur Squamous Epith Cells <1 Hyaline Casts 22 Urine Mucus Few H Micro UA Comment Culture not ind Urine Culture Comments Culture not ind Blood Type B Positive Blood Type Recheck Required Antibody Screen Negative MTS Gel Crossmatch See Detail - Imaging Impressions Ribs X-Ray 01/06/18 00:00 CONCLUSION: Fracturing of the left ninth and right seventh ribs. Head CT 01/06/18 09:11 CONCLUSION: No acute intracranial abnormality is identified. . Chest X-Ray 01/06/18 09:14 CONCLUSION: 1. Background changes suggesting a severe emphysema with interstitial changes at the lung bases. 2. Questionable 14 mm nodule in the right lower lung zone. This should be further evaluated with chest CT at some point to evaluate if this represents a true nodule versus overlying bronchovascular structures. Caprini VTE Risk Assessment Caprini VTE Risk Assessment: Moderate/High Risk (score >= 2) VTE Pharmacological Exception Reason: Hemorrhage Caprini Risk Assessment Model: Point Value = 1 Point Value = 2 Point Value = 3 Point Value = 5 Age 41-60 Minor surgery BMI > 25 kg/m2 Swollen legs Varicose veins or History of unexplained or recurrent spontaneous Oral contraceptives or hormone replacement Sepsis (< 1 month) Serious lung disease, including pneumonia (< 1 month) Abnormal pulmonary function Acute myocardial infarction Congestive heart failure (< 1 month) History of inflammatory bowel disease Medical patient at bed rest Age 61-74 Arthroscopic surgery Major open surgery (> 45 min) Laparoscopic surgery (> 45 min) Malignancy Confined to bed (> 72 hours) Immobilizing plaster cast Central venous access Age >= 75 History of VTE Family history of VTE Factor V Leiden Prothrombin [id number] Lupus anticoagulant Anticardiolipin antibodies Elevated serum homocysteine Heparin-induced thrombocytopenia Other congenital or acquired thrombophilia Stroke (< 1 month) Elective arthroplasty Hip, pelvis, or leg fracture Acute spinal cord injury (< 1 month) Prophylaxis Regimen: Total Risk Factor Score Risk Level Prophylaxis Regimen 0-1 Low Early ambulation 2 Moderate Order ONE of the following: *Sequential Compression Device (SCD) *Heparin 5000 units SQ BID 3-4 Higher Order ONE of the following medications: *Heparin 5000 units SQ TID *Enoxaparin/Lovenox 40 mg SQ daily (WT < 150 kg, CrCl > 30 mL/min) *Enoxaparin/Lovenox 30 mg SQ daily (WT < 150 kg, CrCl > 10-29 mL/min) *Enoxaparin/Lovenox 30 mg SQ BID (WT < 150 kg, CrCl > 30 mL/min) AND/OR *Sequential Compression Device (SCD) 5 or more Highest Order ONE of the following medications: *Heparin 5000 units SQ TID (Preferred with Epidurals) *Enoxaparin/Lovenox 40 mg SQ daily (WT < 150 kg, CrCl > 30 mL/min) *Enoxaparin/Lovenox 30 mg SQ daily (WT < 150 kg, CrCl > 10-29 mL/min) *Enoxaparin/Lovenox 30 mg SQ BID (WT < 150 kg, CrCl > 30 mL/min) AND *Sequential Compression Device (SCD) Assessment and Plan - Plan 62-year-old male admitted with syncopal episode dizziness lightheadedness decreased p.o. appetite chills with black tarry stools Syncopal episode secondary to GI bleed Acute anemia secondary to Upper GI bleed. Start patient on IV Protonix Patient was on Plavix until recently about a week ago. GI consult for EGD. Type and cross 2 units RBC and transfuse Repeat CBC after blood transfusion. Chronic atrial fibrillation-in RVR - response to anemia and DTs History of CAD status post stent in October 2016 Hypertension Per patient he is on furosemide 20 mg 1-1/2 tablet daily, simvastatin, Jeri, amlodipine as outpatient.- Hold meds for now and restart eventually Hold aspirin for now. Increment Manager is Dr. Cook as OP. Will aim for rate control. Heart Rate should improve after blood transfusion and management of DTS EtOH abuse with DTs Likely with an underlying alcoholic liver disease.- He was seen by a GI specialist and outpatient 4-6 weeks ago and was told that he had a "fatty liver" start CIWA protocol. If does not improve may need Precedex drip. Will monitor closely if needed Precedex drip [place] [facility]-secondary to DTs, GIB Leukocytosis Check lactic acid. Check blood cultures Recheck CBC in am . UA chest x-ray negative Check ultrasound for ascites. Acute kidney injury - prerenal in ratio. Likely Poor p.o. due to ETOH use plus GI bleed Start IV fluids after blood transfusion Monitor BMP Teds and SCDs for DVT prophylaxis. Chemical prophylaxis contraindicated with GI bleed.
[2018-01-06] MEDS: Dextrose 5%/NaCl 0.9% Inj 1,000 ML IV.CONT SCH (14:32)
--- NOTE | 2018-01-06 14:32 | US ---
EXAM DATE: 01/06/2018 2:28 PM EDT AGE/SEX: 62 years / Male INDICATIONS: Ascites. CLINICAL DATA: This is the patient's initial encounter. Patient reports that signs and symptoms have been present for 2 days and indicates a pain score of 0/10. MEDICAL/SURGICAL HISTORY: Emphysema. Hypertension. Atrial fibrillation. Coronary artery diseas e. Liver disease. . Cardiac cath with stent. COMPARISON: [facility], US ABDOMEN LIVER, 12/31/2017. . FINDINGS: Masses: None Fluid Collections: None Other: None. CONCLUSION: 1. Ultrasound examination of the abdomen demonstrates no ascites. Electronically signed by: Coleman Olmos MD 01/06/2018 2:30 PM EDT
--- NOTE | 2018-01-06 16:26 | P.CONGI ---
History of Present Illness Consult date: 01/06/18 Consult reason: Anemia, GIB Chief complaint: Syncope/GI bleeds/symptomatic anemia History of Present Illness: This is 62-year-old male with pmh of CAD status post stent in October 2016, A-fib but hasn't taking for few days, hypertension, history of alcoholic abuse, fatty liver who presented with syncopal episode. Pt has been experiencing dizziness, lightheadedness with decreased appetite. Patient also states has been having diarrhea with very black stools for the past 2 days now. He endorses 2 episodes of emesis which consist of gastric material but no hematemesis or coffee ground emesis. labs revealed hgb of 8.6, receiving blood currently. last black BM was this morning. He denies previous hx of GIB or ulcers. He takes ASA, no NSAIDs. Admits to 8-10 drinks of whisky a night. He never had EGD/colonoscopy before. <Maira Sierra - Last Filed: 01/06/18 16:31> Review of Systems All other systems reviewed negative except as stated in HPI <Maira Sierra - Last Filed: 01/06/18 16:31> PMFSH - History History Provided By: Patient, Telemedicine Physician / EMT - Medical History Medical History: Medical History (Last Reviewed 01/06/18 @ 09:39 by Kiley Agrawal MD) A-fib Emphysema of lung HTN (hypertension) - Surgical History Surgical History: Surgical History (Last Reviewed 01/06/18 @ 09:39 by Kiley Agrawal MD) No history of previous surgery Stented coronary artery - Tobacco History Second Hand Smoke Exposure: No Smoking Status: Former smoker (Quit in 1984) - Alcohol History How Often Do You Have a Drink Containing Alcohol: 4 or more times a week ( Patient admits to drinking alcohol daily for many years and states that I enjoy it "habit". Patient has not been drinking since day before yesterday. Patient also admits to occasional marijuana cocaine use before.) - Substance Use History Substance History: No History of Abuse - Substance Use Type Alcohol Status: Active - Travel History Recent Travel in the [place] Within the Last 8 Weeks: No Recent Travel Out of the Country Within the Last 8 Weeks: No - Immunization History Tetanus Immunization: Unsure <Maira Sierra - Last Filed: 01/06/18 16:31> - Medical History Medical History: Medical History (Last Reviewed 01/06/18 @ 09:39 by Kiley Agrawal MD) A-fib Emphysema of lung HTN (hypertension) - Surgical History Surgical History: Surgical History (Last Reviewed 01/06/18 @ 09:39 by Kiley Agrawal MD) No history of previous surgery Stented coronary artery <Marquis Porter - Last Filed: 01/06/18 19:35> Medications and Allergies Active Medications: Active Medications Flumazenil (Romazecon Inj) 0.2 mg IV.PUSH Q1M PRN PRN Reason: OVERSEDATION Haloperidol Lactate (Haldol Inj) 1 mg IV.PUSH Q15M PRN PRN Reason: for severe agitation Sodium Chloride (Ns Inj) 250 mls @ 15 mls/hr IV.SIG ONCE KAELA Stop: 01/07/18 03:39 Last Admin: 01/06/18 14:32 Dose: 15 mls/hr Dextrose/Sodium Chloride (D5w/Normal Saline Inj) 1,000 mls @ 70 mls/hr IV.CONT .[id number] KAELA Last Admin: 01/06/18 14:32 Dose: 70 mls/hr Lorazepam (Ativan) 1 mg PO Q4H PRN PRN Reason: for CIWA 8-10 Lorazepam (Ativan) 2 mg PO Q2H PRN PRN Reason: for CIWA 11-14 Lorazepam (Ativan Inj) 2 mg IV.PUSH Q1H PRN PRN Reason: for CIWA 15-20 Lorazepam (Ativan Inj) 2 mg IV.PUSH Q15M PRN PRN Reason: for CIWA > 20 Lorazepam (Ativan Inj) 1 mg IV.PUSH Q4H PRN PRN Reason: for CIWA 8-10 Lorazepam (Ativan Inj) 2 mg IV.PUSH Q2H PRN PRN Reason: for CIWA 11-14 Oxycodone/Acetaminophen (Percocet 5/325 Mg) 1 tab PO Q6H PRN PRN Reason: pain 4-10 Last Admin: 01/06/18 12:07 Dose: 1 tab Pantoprazole Sodium (Protonix Inj) 40 mg IV.PUSH Q24H KAELA <Maira Sierra - Last Filed: 01/06/18 16:31> Active Medications: Active Medications Chlorhexidine Gluconate (Chlorhexidine 2% Cloth) 3 pack TOPICAL DAILY@0400 KAELA Stop: 01/12/18 03:59 Chlorhexidine Gluconate (Chlorhexidine 2% Cloth) 3 pack TOPICAL DAILY@0400 PRN PRN Reason: Extra cloth needed Stop: 01/12/18 03:59 Flumazenil (Romazecon Inj) 0.2 mg IV.PUSH Q1M PRN PRN Reason: OVERSEDATION Haloperidol Lactate (Haldol Inj) 1 mg IV.PUSH Q15M PRN PRN Reason: for severe agitation Sodium Chloride (Ns Inj) 250 mls @ 15 mls/hr IV.SIG ONCE KAELA Stop: 01/07/18 03:39 Last Admin: 01/06/18 14:32 Dose: 15 mls/hr Dextrose/Sodium Chloride (D5w/Normal Saline Inj) 1,000 mls @ 70 mls/hr IV.CONT .[id number] [facility] Last Admin: 01/06/18 14:32 Dose: 70 mls/hr Lorazepam (Ativan) 1 mg PO Q4H PRN PRN Reason: for CIWA 8-10 Lorazepam (Ativan) 2 mg PO Q2H PRN PRN Reason: for CIWA 11-14 Lorazepam (Ativan Inj) 2 mg IV.PUSH Q1H PRN PRN Reason: for CIWA 15-20 Lorazepam (Ativan Inj) 2 mg IV.PUSH Q15M PRN PRN Reason: for CIWA > 20 Lorazepam (Ativan Inj) 1 mg IV.PUSH Q4H PRN PRN Reason: for CIWA 8-10 Lorazepam (Ativan Inj) 2 mg IV.PUSH Q2H PRN PRN Reason: for CIWA 11-14 Oxycodone/Acetaminophen (Percocet 5/325 Mg) 1 tab PO Q6H PRN PRN Reason: pain 4-10 Last Admin: 01/06/18 18:05 Dose: 1 tab Pantoprazole Sodium (Protonix Inj) 40 mg IV.PUSH Q24H KAELA <Marquis Porter - Last Filed: 01/06/18 19:35> Allergies Allergy/AdvReac Type Severity Reaction Status Date / Time No Known Allergies Allergy Verified 01/06/18 11:39 Home Medications Medication Instructions Recorded Confirmed Type amlodipine-valsartan 1 tab PO DAILY 01/06/18 01/06/18 History aspirin [Aspirin Low Dose] 81 mg PO DAILY 01/06/18 01/06/18 History atorvastatin 40 mg PO DAILY 01/06/18 01/06/18 History budesonide-formoterol [Symbicort] 2 puff INHALATION HS 01/06/18 01/06/18 History furosemide 60 mg PO DAILY 01/06/18 01/06/18 History Exam Vital signs: Vital Signs 01/06/18 08:46 01/06/18 11:45 01/06/18 14:22 Temperature 97.5 F L 97.5 F L Pulse Rate 95 H 118 H 120 H Respiratory Rate 26 H 17 20 Blood Pressure 131/61 110/88 106/59 L Pulse Oximetry 99 96 95 01/06/18 14:38 01/06/18 15:17 01/06/18 15:20 Temperature 97.6 F 97.8 F 97.8 F Pulse Rate 101 H 113 H 113 H Respiratory Rate 20 20 20 Blood Pressure 105/56 L 86/52 L 86/52 L Pulse Oximetry 93 L 94 L 94 L Intake & Output 01/05/18 01/06/18 01/06/18 18:59 06:59 18:59 Intake Total 0 / 0 Balance 0 / 0 Weight 74 kg Intake: Intake (Blood Product) Amt 0 / 0 Rbc As-3 Leukoreduced Unit 0 / 0 [id number] Other: Weight On Admission 73.9 kg - Constitutional no acute distress - Routine HEENT Exam Head: Present: normocephalic - Routine Respiratory Exam Present: CTA bilaterally - Routine Cardiovascular Exam Present: RRR - Routine Abdominal Exam Present: soft, normoactive bowel sounds. Absent: tenderness, distended - Routine Extremities Exam Absent: cyanosis, clubbing - Routine Skin Exam Present: intact, dry - Routine Neurological Exam Present: alert, oriented X3 <Maira Sierra - Last Filed: 01/06/18 16:31> Vital signs: Vital Signs 01/06/18 08:46 01/06/18 11:45 01/06/18 14:22 Temperature 97.5 F L 97.5 F L Pulse Rate 95 H 118 H 120 H Respiratory Rate 26 H 17 20 Blood Pressure 131/61 110/88 106/59 L Pulse Oximetry 99 96 95 01/06/18 14:38 01/06/18 15:17 01/06/18 15:20 Temperature 97.6 F 97.8 F 97.8 F Pulse Rate 101 H 113 H 113 H Respiratory Rate 20 20 20 Blood Pressure 105/56 L 86/52 L 86/52 L Pulse Oximetry 93 L 94 L 94 L 01/06/18 16:44 01/06/18 16:45 01/06/18 17:31 Temperature 98.9 F 98.8 F Pulse Rate 104 H 112 H Respiratory Rate 22 16 Blood Pressure 107/56 L 107/56 L 97/55 L Pulse Oximetry 93 L 92 L 01/06/18 17:48 Temperature 98.3 F Pulse Rate 99 H Respiratory Rate 16 Blood Pressure 97/55 L Pulse Oximetry Intake & Output 01/06/18 01/06/18 01/07/18 06:59 18:59 06:59 Intake Total 1400 / 1400 Output Total 260 / 260 Balance 1140 / 1140 Weight 74 kg Intake: IV 1000 / 1000 NS Inj 1,000 ML @ Wide Open IV. 1000 / 1000 SIG BOLUS ONE Rx#:[id number] Intake (Blood Product) Amt 400 / 400 Rbc As-3 Leukoreduced Unit 400 / 400 [id number] Rbc As-3 Leukoreduced Unit 0 / 0 [id number] Output: Urine 260 / 260 Other: Weight On Admission 73.9 kg <Marquis Porter E - Last Filed: 01/06/18 19:35> Results - Labs CBC & Chem 7: 01/06/18 09:20 01/06/18 09:20 Labs: Laboratory Results - last 24 hr 01/06/18 01/06/18 01/06/18 09:20 09:20 09:20 WBC 18.3 H RBC 2.74 L Hgb 8.6 L Hct 26.1 L MCV 95.4 MCH 31.3 MCHC 32.8 RDW 16.8 Plt Count 351 MPV 7.6 Neut % (Auto) 81.0 H Lymph % (Auto) 11.0 [place] % (Auto) 7.4 Eos % (Auto) 0.1 Baso % (Auto) 0.5 Neut # (Auto) 14.8 H Lymph # (Auto) 2.0 [place] # (Auto) 1.4 H Eos # (Auto) 0.0 Baso # (Auto) 0.1 WBC Differential . Differential Comment Auto diff final PT 11.4 INR 1.1 APTT 19.1 L Sodium 137 Potassium 3.9 Chloride 103 Carbon Dioxide 20.1 L Anion Gap 14 BUN 88 H Creatinine 1.89 H Estimated GFR 36 L Random Glucose 145 H Lactic Acid Calcium 8.2 L Total Bilirubin 0.3 AST 44 H ALT 41 Alkaline Phosphatase 69 Troponin I Less than 0.02 L Total Protein 5.6 L Albumin 2.8 L Urine Color Urine Clarity Urine pH Ur Specific [place] Urine Protein Urine Glucose (UA) Urine Ketones Urine Occult Blood Urine Nitrate Urine Bilirubin Urine Urobilinogen Ur Leukocyte Esterase Urine RBC Urine WBC Ur Squamous Epith Cells Hyaline Casts Urine Mucus Micro UA Comment Urine Culture Comments Blood Type Blood Type Recheck Antibody Screen MTS Gel Crossmatch 01/06/18 01/06/18 01/06/18 09:20 12:22 12:55 WBC RBC Hgb Hct MCV MCH MCHC RDW Plt Count MPV Neut % (Auto) Lymph % (Auto) [place] % (Auto) Eos % (Auto) Baso % (Auto) Neut # (Auto) Lymph # (Auto) [place] # (Auto) Eos # (Auto) Baso # (Auto) WBC Differential Differential Comment PT INR APTT Sodium Potassium Chloride Carbon Dioxide Anion Gap BUN Creatinine Estimated GFR Random Glucose Lactic Acid Calcium Total Bilirubin AST ALT Alkaline Phosphatase Troponin I Total Protein Albumin Urine Color Yellow Urine Clarity Hazy H Urine pH 5.0 Ur Specific [place] 1.014 Urine Protein Negative Urine Glucose (UA) Negative Urine Ketones Negative Urine Occult Blood Negative Urine Nitrate Negative Urine Bilirubin Negative Urine Urobilinogen Less than 2 Ur Leukocyte Esterase Negative Urine RBC Less than 1 Urine WBC Less than 1 Ur Squamous Epith Cells <1 Hyaline Casts 22 Urine Mucus Few H Micro UA Comment Culture not ind Urine Culture Comments Culture not ind Blood Type B Positive Blood Type Recheck Required Antibody Screen Negative MTS Gel Crossmatch See Detail 01/06/18 15:02 WBC RBC Hgb Hct MCV MCH MCHC RDW Plt Count MPV Neut % (Auto) Lymph % (Auto) [place] % (Auto) Eos % (Auto) Baso % (Auto) Neut # (Auto) Lymph # (Auto) [place] # (Auto) Eos # (Auto) Baso # (Auto) WBC Differential Differential Comment PT INR APTT Sodium Potassium Chloride Carbon Dioxide Anion Gap BUN Creatinine Estimated GFR Random Glucose Lactic Acid 1.8 Calcium Total Bilirubin AST ALT Alkaline Phosphatase Troponin I Total Protein Albumin Urine Color Urine Clarity Urine pH Ur Specific [place] Urine Protein Urine Glucose (UA) Urine Ketones Urine Occult Blood Urine Nitrate Urine Bilirubin Urine Urobilinogen Ur Leukocyte Esterase Urine RBC Urine WBC Ur Squamous Epith Cells Hyaline Casts Urine Mucus Micro UA Comment Urine Culture Comments Blood Type Blood Type Recheck Antibody Screen MTS Gel Crossmatch - Imaging Impressions Ribs X-Ray 01/06/18 00:00 CONCLUSION: Fracturing of the left ninth and right seventh ribs. Head CT 01/06/18 09:11 CONCLUSION: No acute intracranial abnormality is identified. . Chest X-Ray 01/06/18 09:14 CONCLUSION: 1. Background changes suggesting a severe emphysema with interstitial changes at the lung bases. 2. Questionable 14 mm nodule in the right lower lung zone. This should be further evaluated with chest CT at some point to evaluate if this represents a true nodule versus overlying bronchovascular structures. Abdomen Ultrasound 01/06/18 13:25 CONCLUSION: 1. Ultrasound examination of the abdomen demonstrates no ascites. <Maira Sierra - Last Filed: 01/06/18 16:31> - Labs CBC & Chem 7: 01/06/18 09:20 01/06/18 09:20 Labs: Laboratory Results - last 24 hr 01/06/18 01/06/18 01/06/18 09:20 09:20 09:20 WBC 18.3 H RBC 2.74 L Hgb 8.6 L Hct 26.1 L MCV 95.4 MCH 31.3 MCHC 32.8 RDW 16.8 Plt Count 351 MPV 7.6 Neut % (Auto) 81.0 H Lymph % (Auto) 11.0 [place] % (Auto) 7.4 Eos % (Auto) 0.1 Baso % (Auto) 0.5 Neut # (Auto) 14.8 H Lymph # (Auto) 2.0 [place] # (Auto) 1.4 H Eos # (Auto) 0.0 Baso # (Auto) 0.1 WBC Differential . Differential Comment Auto diff final PT 11.4 INR 1.1 APTT 19.1 L Sodium 137 Potassium 3.9 Chloride 103 Carbon Dioxide 20.1 L Anion Gap 14 BUN 88 H Creatinine 1.89 H Estimated GFR 36 L Random Glucose 145 H Lactic Acid Calcium 8.2 L Total Bilirubin 0.3 AST 44 H ALT 41 Alkaline Phosphatase 69 Troponin I Less than 0.02 L Total Protein 5.6 L Albumin 2.8 L Urine Color Urine Clarity Urine pH Ur Specific [place] Urine Protein Urine Glucose (UA) Urine Ketones Urine Occult Blood Urine Nitrate Urine Bilirubin Urine Urobilinogen Ur Leukocyte Esterase Urine RBC Urine WBC Ur Squamous Epith Cells Hyaline Casts Urine Mucus Micro UA Comment Urine Culture Comments Blood Type Blood Type Recheck Antibody Screen MTS Gel Crossmatch 01/06/18 01/06/18 01/06/18 09:20 12:22 12:55 WBC RBC Hgb Hct MCV MCH MCHC RDW Plt Count MPV Neut % (Auto) Lymph % (Auto) [place] % (Auto) Eos % (Auto) Baso % (Auto) Neut # (Auto) Lymph # (Auto) [place] # (Auto) Eos # (Auto) Baso # (Auto) WBC Differential Differential Comment PT INR APTT Sodium Potassium Chloride Carbon Dioxide Anion Gap BUN Creatinine Estimated GFR Random Glucose Lactic Acid Calcium Total Bilirubin AST ALT Alkaline Phosphatase Troponin I Total Protein Albumin Urine Color Yellow Urine Clarity Hazy H Urine pH 5.0 Ur Specific [place] 1.014 Urine Protein Negative Urine Glucose (UA) Negative Urine Ketones Negative Urine Occult Blood Negative Urine Nitrate Negative Urine Bilirubin Negative Urine Urobilinogen Less than 2 Ur Leukocyte Esterase Negative Urine RBC Less than 1 Urine WBC Less than 1 Ur Squamous Epith Cells <1 Hyaline Casts 22 Urine Mucus Few H Micro UA Comment Culture not ind Urine Culture Comments Culture not ind Blood Type B Positive Blood Type Recheck Required Antibody Screen Negative MTS Gel Crossmatch See Detail 01/06/18 15:02 WBC RBC Hgb Hct MCV MCH MCHC RDW Plt Count MPV Neut % (Auto) Lymph % (Auto) [place] % (Auto) Eos % (Auto) Baso % (Auto) Neut # (Auto) Lymph # (Auto) [place] # (Auto) Eos # (Auto) Baso # (Auto) WBC Differential Differential Comment PT INR APTT Sodium Potassium Chloride Carbon Dioxide Anion Gap BUN Creatinine Estimated GFR Random Glucose Lactic Acid 1.8 Calcium Total Bilirubin AST ALT Alkaline Phosphatase Troponin I Total Protein Albumin Urine Color Urine Clarity Urine pH Ur Specific [place] Urine Protein Urine Glucose (UA) Urine Ketones Urine Occult Blood Urine Nitrate Urine Bilirubin Urine Urobilinogen Ur Leukocyte Esterase Urine RBC Urine WBC Ur Squamous Epith Cells Hyaline Casts Urine Mucus Micro UA Comment Urine Culture Comments Blood Type Blood Type Recheck Antibody Screen MTS Gel Crossmatch - Imaging Impressions Ribs X-Ray 01/06/18 00:00 CONCLUSION: Fracturing of the left ninth and right seventh ribs. Head CT 01/06/18 09:11 CONCLUSION: No acute intracranial abnormality is identified. . Chest X-Ray 01/06/18 09:14 CONCLUSION: 1. Background changes suggesting a severe emphysema with interstitial changes at the lung bases. 2. Questionable 14 mm nodule in the right lower lung zone. This should be further evaluated with chest CT at some point to evaluate if this represents a true nodule versus overlying bronchovascular structures. Abdomen Ultrasound 01/06/18 13:25 CONCLUSION: 1. Ultrasound examination of the abdomen demonstrates no ascites. <Marquis Porter - Last Filed: 01/06/18 19:35> Assessment and Plan - Plan - GIB/melena, anemia symptomatic- came in with syncopal episode, hypotension and diarrhea with very black stools for the past 2 days now. Labs revealed hgb of 8.6, receiving blood currently. last black BM was this morning. He denies previous hx of GIB or ulcers. He takes ASA, no NSAIDs. Admits to 8-10 drinks of whisky a night. He never had EGD/ colonoscopy before. Hemodynamically stable DX include PUD, varices, gastritis or others - Anemia- Secondary to acute GI bleed - Leukocytosis- Likely reactive - Hx of fatty liver- alcohol abuse, Liver enzymes consistent with alcohol intake , no ascites present on US - pmh of CAD status post stent in October 2016, A-fib but hasn't taking for few days, hypertension per attending Plan: - Clears - Discussed doing EGD/colonoscopy but pt would like to hold off on Colonoscopy for now pending EGD results - EGD in the am - NPO mn - consents - Monitor hh - Transfuse as needed - Hepatitis panel - US - Alcohol cessation - DTs precautions - Pt seen and examined by and myself and this note is written on his behalf. <Maira Sierra - Last Filed: 01/06/18 16:31> - Attending Attestation Patient seen and examined Agree with above Continue with current supportive care Monitor labs Plan on an EGD tomorrow <Marquis Porter E - Last Filed: 01/06/18 19:35>
[2018-01-07 00:31] LABS: Hematocrit 28.2 % (39.0-51.0); Hemoglobin 9.4 gm/dL (13.0-17.0)
[2018-01-07 02:41] LABS: Hepatitis A IgM Antibody Nonreactive (Nonreactive)
[2018-01-07 02:42] LABS: Hepatitits B Surface Antigen Nonreactive (Nonreactive)
[2018-01-07] MEDS ORDERED: Chlorhexidine Gluconate 2% 1 Pack (2 Cloths) TOPICAL PRN (04:00)
[2018-01-07] MEDS: Chlorhexidine Gluconate 2% 1 Pack (2 Cloths) TOPICAL SCH (04:02)
[2018-01-07] MEDS: Dextrose 5%/NaCl 0.9% Inj 1,000 ML IV.CONT SCH ×2 (05:16→19:34)
[2018-01-07 06:58] LABS: Baso # (Auto) 0.1 th/mm3 (0.0-0.2); Baso % (Auto) 0.9 % (0.0-2.0); Eos # (Auto) 0.1 th/mm3 (0.0-0.4); Eos % (Auto) 0.8 % (0.0-4.0); Hematocrit 31.7 % (39.0-51.0); Hemoglobin 10.6 gm/dL (13.0-17.0); Lymph # (Auto) 1.7 th/mm3 (1.0-4.8); Lymph % (Auto) 14.5 % (9.0-44.0); Mean Corpuscular HGB Conc 33.4 % (32.0-36.0); Mean Corpuscular Hemoglobin 31.4 pg (27.0-34.0); Mean Corpuscular Volume 94.1 fL (80.0-100.0); Mean Platelet Volume 7.3 fL (7.0-11.0); Mono # (Auto) 1.1 th/mm3 (0.0-0.9); Mono % (Auto) 9.5 % (0.0-8.0); Neut # (Auto) 8.6 th/mm3 (1.8-7.7); Neut % (Auto) 74.3 % (16.0-70.0); Platelet Count 227 th/mm3 (150-450); Red Blood Count 3.37 mil/mm3 (4.50-5.90); Red Cell Distribution Width 16.1 % (11.6-17.2); White Blood Count 11.6 th/mm3 (4.0-11.0)
[2018-01-07 07:19] LABS: Alanine Aminotransferase 31 U/L (12-78); Albumin 2.7 g/dL (3.4-5.0); Alkaline Phosphatase 57 U/L (45-117); Anion Gap 10 meq/L (5-15); Aspartate Aminotransferase 27 U/L (15-37); Blood Urea Nitrogen 47 mg/dL (7-18); Calcium 7.9 mg/dL (8.5-10.1); Carbon Dioxide 21.5 meq/L (21.0-32.0); Chloride 112 meq/L (98-107); Glomerular Filtration Rate 58 mL/min (>89); Glucose,Random 117 mg/dL (74-106); Potassium 4.1 meq/L (3.5-5.1); Sodium 143 meq/L (136-145); Total Protein 5.3 g/dL (6.4-8.2)
[2018-01-07] MEDS: Pantoprazole Inj 40 MG Vial IV.PUSH SCH (08:06)
--- NOTE | 2018-01-07 08:27 | P.PN ---
Subjective Interval history: This is a pleasant 62 y/o male with CAD status post PCI and stent placement October 2016, Hypertension alcoholic Liver disease, who came to ER with Weakness, GI bleed, Atrial fibrillation. Seen in his bedroom discussed with patient and application support technician in the room , no new issues, no further Melenic stools since admission. No nausea vomit or diarrhea. Physical Exam Vital signs: Vital Signs 01/06/18 08:46 01/06/18 11:45 01/06/18 14:22 Temperature 97.5 F L 97.5 F L Pulse Rate 95 H 118 H 120 H Respiratory Rate 26 H 17 20 Blood Pressure 131/61 110/88 106/59 L Pulse Oximetry 99 96 95 01/06/18 14:38 01/06/18 15:17 01/06/18 15:20 Temperature 97.6 F 97.8 F 97.8 F Pulse Rate 101 H 113 H 113 H Respiratory Rate 20 20 20 Blood Pressure 105/56 L 86/52 L 86/52 L Pulse Oximetry 93 L 94 L 94 L 01/06/18 16:44 01/06/18 16:45 01/06/18 17:31 Temperature 98.9 F 98.8 F Pulse Rate 104 H 112 H Respiratory Rate 22 16 Blood Pressure 107/56 L 107/56 L 97/55 L Pulse Oximetry 93 L 92 L 01/06/18 17:48 01/06/18 20:00 01/07/18 00:00 Temperature 98.3 F 98.1 F 99.1 F Pulse Rate 99 H 95 H 84 Respiratory Rate 16 20 18 Blood Pressure 97/55 L 110/61 91/55 L Pulse Oximetry 93 L 93 L 01/07/18 02:59 Temperature Pulse Rate 69 Respiratory Rate 25 H Blood Pressure 88/55 L Pulse Oximetry 96 Intake & Output 01/06/18 01/07/18 01/07/18 18:59 06:59 18:59 Intake Total 1400 / 1400 1520 / 1520 250 / 250 Output Total 260 / 260 550 / 550 Balance 1140 / 1140 970 / 970 250 / 250 Weight 74 kg Intake: IV 1000 / 1000 1000 / 1000 250 / 250 D5W/Normal Saline Inj 1,000 ML 1000 / 1000 @ 70 mls/hr IV.CONT .[id number] [facility] Rx#:[id number] NS Inj 1,000 ML @ Wide Open IV. 1000 / 1000 SIG BOLUS ONE Rx#:[id number] NS Inj 250 ML @ 15 mls/hr IV. 250 / 250 SIG ONCE [facility] Rx#:[id number] Oral 520 / 520 Intake (Blood Product) Amt 400 / 400 0 / 0 Rbc As-3 Leukoreduced Unit 400 / 400 [id number] Rbc As-3 Leukoreduced Unit 0 / 0 0 / 0 [id number] Output: Urine 260 / 260 550 / 550 Other: # Voids 2 Date of Last Bowel Movement 01/04/18 Weight On Admission 73.9 kg Narrative: GENERAL: This is a well-nourished, well-developed patient, in no apparent distress. CARDIOVASCULAR: Irregular rate and rhythm. RESPIRATORY: Clear to auscultation. Breath sounds equal bilaterally. No wheezes , rales, or rhonchi. GASTROINTESTINAL: Abdomen soft, non-tender, nondistended. Normal active bowel sounds MUSCULOSKELETAL: Extremities without clubbing, cyanosis, or edema. NEURO: Alert & Oriented x4 to person, place, time, situation. Moves all ext x4 Results - Labs CBC & Chem 7: 01/07/18 06:19 01/07/18 06:19 Laboratory Results - last 24 hr 01/06/18 01/06/18 01/06/18 09:20 09:20 09:20 WBC 18.3 H RBC 2.74 L Hgb 8.6 L Hct 26.1 L MCV 95.4 MCH 31.3 MCHC 32.8 RDW 16.8 Plt Count 351 MPV 7.6 Neut % (Auto) 81.0 H Lymph % (Auto) 11.0 Sp[place] % (Auto) 7.4 Eos % (Auto) 0.1 Baso % (Auto) 0.5 Neut # (Auto) 14.8 H Lymph # (Auto) 2.0 Sp[place] # (Auto) 1.4 H Eos # (Auto) 0.0 Baso # (Auto) 0.1 WBC Differential . Differential Comment Auto diff final PT 11.4 INR 1.1 APTT 19.1 L Sodium 137 Potassium 3.9 Chloride 103 Carbon Dioxide 20.1 L Anion Gap 14 BUN 88 H Creatinine 1.89 H Estimated GFR 36 L Random Glucose 145 H Lactic Acid Calcium 8.2 L Total Bilirubin 0.3 AST 44 H ALT 41 Alkaline Phosphatase 69 Troponin I Less than 0.02 L Total Protein 5.6 L Albumin 2.8 L Urine Color Urine Clarity Urine pH Ur Specific Channing Urine Protein Urine Glucose (UA) Urine Ketones Urine Occult Blood Urine Nitrate Urine Bilirubin Urine Urobilinogen Ur Leukocyte Esterase Urine RBC Urine WBC Ur Squamous Epith Cells Hyaline Casts Urine Mucus Micro UA Comment Urine Culture Comments Nasal Screen MRSA (PCR) Hepatitis A IgM Ab Hep Bs Antigen Hep B Core IgM Ab Hep C IgG Ab Blood Type Blood Type Recheck Antibody Screen MTS Gel Crossmatch 01/06/18 01/06/18 01/06/18 09:20 12:22 12:55 WBC RBC Hgb Hct MCV MCH MCHC RDW Plt Count MPV Neut % (Auto) Lymph % (Auto) Sp[place]ding % (Auto) Eos % (Auto) Baso % (Auto) Neut # (Auto) Lymph # (Auto) [place] # (Auto) Eos # (Auto) Baso # (Auto) WBC Differential Differential Comment PT INR APTT Sodium Potassium Chloride Carbon Dioxide Anion Gap BUN Creatinine Estimated GFR Random Glucose Lactic Acid Calcium Total Bilirubin AST ALT Alkaline Phosphatase Troponin I Total Protein Albumin Urine Color Yellow Urine Clarity Hazy H Urine pH 5.0 Ur Specific Channing 1.014 Urine Protein Negative Urine Glucose (UA) Negative Urine Ketones Negative Urine Occult Blood Negative Urine Nitrate Negative Urine Bilirubin Negative Urine Urobilinogen Less than 2 Ur Leukocyte Esterase Negative Urine RBC Less than 1 Urine WBC Less than 1 Ur Squamous Epith Cells <1 Hyaline Casts 22 Urine Mucus Few H Micro UA Comment Culture not ind Urine Culture Comments Culture not ind Nasal Screen MRSA (PCR) Hepatitis A IgM Ab Hep Bs Antigen Hep B Core IgM Ab Hep C IgG Ab Blood Type B Positive Blood Type Recheck Required Antibody Screen Negative MTS Gel Crossmatch See Detail 01/06/18 01/06/18 01/06/18 15:02 16:55 23:46 WBC RBC Hgb Hct MCV MCH MCHC RDW Plt Count MPV Neut % (Auto) Lymph % (Auto) Sp[place]ding % (Auto) Eos % (Auto) Baso % (Auto) Neut # (Auto) Lymph # (Auto) Sp[place]ding # (Auto) Eos # (Auto) Baso # (Auto) WBC Differential Differential Comment PT INR APTT Sodium Potassium Chloride Carbon Dioxide Anion Gap BUN Creatinine Estimated GFR Random Glucose Lactic Acid 1.8 Calcium Total Bilirubin AST ALT Alkaline Phosphatase Troponin I Total Protein Albumin Urine Color Urine Clarity Urine pH Ur Specific [place] Urine Protein Urine Glucose (UA) Urine Ketones Urine Occult Blood Urine Nitrate Urine Bilirubin Urine Urobilinogen Ur Leukocyte Esterase Urine RBC Urine WBC Ur Squamous Epith Cells Hyaline Casts Urine Mucus Micro UA Comment Urine Culture Comments Nasal Screen MRSA (PCR) Not detected Hepatitis A IgM Ab Nonreactive Hep Bs Antigen Nonreactive Hep B Core IgM Ab Nonreactive Hep C IgG Ab Nonreactive Blood Type Blood Type Recheck Antibody Screen MTS Gel Crossmatch 01/06/18 01/07/18 01/07/18 23:46 06:19 06:19 WBC 11.6 H RBC 3.37 L Hgb 9.4 L 10.6 L Hct 28.2 L 31.7 L MCV 94.1 MCH 31.4 MCHC 33.4 RDW 16.1 Plt Count 227 D MPV 7.3 Neut % (Auto) 74.3 H Lymph % (Auto) 14.5 Sp[place] % (Auto) 9.5 H Eos % (Auto) 0.8 Baso % (Auto) 0.9 Neut # (Auto) 8.6 H Lymph # (Auto) 1.7 Sp[place] # (Auto) 1.1 H Eos # (Auto) 0.1 Baso # (Auto) 0.1 WBC Differential . Differential Comment Auto diff final PT INR APTT Sodium 143 Potassium 4.1 Chloride 112 H D Carbon Dioxide 21.5 Anion Gap 10 BUN 47 H Creatinine 1.25 Estimated GFR 58 L Random Glucose 117 H Lactic Acid Calcium 7.9 L Total Bilirubin 0.6 AST 27 ALT 31 Alkaline Phosphatase 57 Troponin I Total Protein 5.3 L Albumin 2.7 L Urine Color Urine Clarity Urine pH Ur Specific Channing Urine Protein Urine Glucose (UA) Urine Ketones Urine Occult Blood Urine Nitrate Urine Bilirubin Urine Urobilinogen Ur Leukocyte Esterase Urine RBC Urine WBC Ur Squamous Epith Cells Hyaline Casts Urine Mucus Micro UA Comment Urine Culture Comments Nasal Screen MRSA (PCR) Hepatitis A IgM Ab Hep Bs Antigen Hep B Core IgM Ab Hep C IgG Ab Blood Type Blood Type Recheck Antibody Screen MTS Gel Crossmatch - Imaging Impressions Ribs X-Ray 01/06/18 00:00 CONCLUSION: Fracturing of the left ninth and right seventh ribs. Head CT 01/06/18 09:11 CONCLUSION: No acute intracranial abnormality is identified. . Chest X-Ray 01/06/18 09:14 CONCLUSION: 1. Background changes suggesting a severe emphysema with interstitial changes at the lung bases. 2. Questionable 14 mm nodule in the right lower lung zone. This should be further evaluated with chest CT at some point to evaluate if this represents a true nodule versus overlying bronchovascular structures. Abdomen Ultrasound 01/06/18 13:25 CONCLUSION: 1. Ultrasound examination of the abdomen demonstrates no ascites. Assessment and Plan - Plan 62-year-old male admitted with syncopal episode dizziness lightheadedness decreased p.o. appetite chills with black tarry stools Syncopal episode secondary to GI bleed Upper GI bleed. Start patient on IV Protonix EGD today, hold colonoscopy by GI specialist, H and H, Hepatitis panel. alcohol cessation Chronic atrial fibrillation-in RVR - response to anemia and DTs History of CAD status post stent in October 2016 Hypertension Per patient he is on furosemide 20 mg 1-1/2 tablet daily, simvastatin, Jeri, amlodipine as outpatient.- Hold meds for now Hold aspirin for now. Precision Grinder External is Dr. Cook as OP. as indicated by doctor Corinne Heart rate improved after blood transfusion EtOH abuse with DTs Likely with an underlying alcoholic liver disease.- He was seen by a GI specialist and outpatient 4-6 weeks ago and was told that he had a "fatty liver" start CIWA protocol. If does not improve may need Precedex drip. Will monitor closely if needed Precedex drip [place] [facility] [place] SIRS-secondary to DTs, GIB Leukocytosis Check lactic acid. Check blood cultures Recheck CBC in am . UA chest x-ray negative Check ultrasound for ascites. Acute kidney injury - Improving to baseline. Teds and SCDs for DVT prophylaxis. Chemical prophylaxis contraindicated with GI bleed. Code Status: Full code. Discussed Condition With: Patient Discharge Planning: Once cleared by GI specialist.
--- NOTE | 2018-01-07 11:35 | US ---
EXAM DATE: 01/07/2018 10:12 AM EDT AGE/SEX: 62 years / Male INDICATIONS: Abdominal pain. CLINICAL DATA: This is the patient's initial encounter. Patient reports that signs and symptoms have been present for 2 days and indicates a pain score of 0/10. MEDICAL/SURGICAL HISTORY: . Emphysema. Hypertension. Atrial fibrillation. Coronary artery disea se. Liver disease. . Cardiac catheterization with stent. COMPAR[place] [facility] [place], 01/06/2018. . MEASUREMENTS: Liver:__ 16.3 cm. Common Bile Duct:__ 3mm. Right Kidney:__ 9.4 x x 4.9 cm. FINDINGS: Liver: There is a slightly greater than 1 cm hyperechoic mass in the right lobe of the liver. There i s no evidence of biliary ductal dilatation. Portal Vein: Hepatopedal flow seen in portal vein. Common Duct: No intraluminal mass or stone visualized. Gallbladder: Demonstrates no wall thickening or pericholecystic fluid. Multiple small dependent ston es visualized. Pancreas: The visualized portions are within normal limits Right Kidney: Tiny echogenic focus in the lower pole likely nonobstructing stone. Other: None. CONCLUSION: 1. Small hyperechoic liver mass. Recommend further elective characterization with contrasted hepatic MRI when clinically feasible 2. Gallstones 3. Nonobstructing small right renal stone. Electronically signed by: Todd Rivero MD 01/07/2018 11:34 AM EDT
[2018-01-07] MEDS ORDERED: Lidocaine PF 1% Inj 5 ML Syringe INFILTRATN ONE (12:00)
--- NOTE | 2018-01-07 16:29 | ECG ---
Date Performed: 01/06/2018 Time Performed: 08:43:57 PTAGE: 62 years EKG: ATRIAL FIBRILLATION WITH RAPID VENTRICULAR RESPONSE WITH ABERRANT CONDUCTION OR VENTRICULAR PREMATURE COMPLEXES MARKED RIGHT AXIS DEVIATION RIGHT BUNDLE BRANCH BLOCK Compared to previous abby ng Compared to previous tracing, atrial fibrillation with rapid ventricular response has replaced Sin us rhythm . Right bundle branch block is new. ABNORMAL ECG NO PREVIOUS TRACING DOCTOR: Calderon Lyn Interpretating Date/Time 01/07/2018 16:26:53
--- NOTE | 2018-01-07 18:29 | P.PCN ---
Date of procedure: 01/07/18 Pre-op diagnosis: GI bleed, anemia Procedure: PROCEDURE PERFORMED EGD with biopsy INDICATION FOR PROCEDURE GI bleed, anemia, melena PROCEDURE: The procedure, risks and benefits were discussed with Patient/POA and informed consent was obtained. Anesthesia sedated Patient with Diprivan. Patient was placed in the left lateral decubitus position. EGD: The Pentax videoscope was introduced through the oropharynx and advanced to the second portion of the duodenum under direct visualization. Retroflexion was performed in the stomach. FINDINGS: The esophagus this appeared to be unremarkable except for the irregular Z line this was biopsied The stomach there was some patchy erythema in the antrum but no ulcerations and no erosions no blood or bleeding antral biopsies were taken for further evaluation The duodenum this was normal ESTIMATED BLOOD LOSS: None SPECIMENS REMOVED: Esophageal and gastric biopsies COMPLICATIONS: None IMPRESSION: Irregular Z line Mild gastritis PLAN: Await biopsies Continue with current supportive care Monitor labs Proceed with colonoscopy tomorrow Anesthesia: MAC Surgeon: Marquis Porter Condition: stable Disposition: floor
--- NOTE | 2018-01-07 18:51 | ECHRPT ---
Indication: HEART FAILURE CONCLUSIONS The left ventricular systolic function is hyperdynamic with an estimated ejection fraction in the ra nge of 65- 70%. Trace mitral valve regurgitation. Trace aortic valve regurgitation. There is trace tricuspid valve regurgitation. BP: / HR: Rhythm: Sinus MEASUREMENTS (Male / Female) Normal Values Technical Quality:Poor 2D ECHO LVOT Diameter 1.9 cm LV Ejection Fraction MOD 4C 72.5 % LV Ejection Fraction 4C AL 73.5 % M-MODE LV Diastolic Diameter MM 6.5 cm 4.2 - 5.9 / 3.9 - 5.3 cm LV Systolic Diameter MM 4.1 cm LV Ejection Fraction MM Teich 65.8 % IVS Diastolic Thickness MM 1.0 cm 0.6 - 1.0 / 0.6 - 0.9 cm LVPW Diastolic Thickness MM 1.0 cm 0.6 - 1.0 / 0.6 - 0.9 cm LV Relative Wall Thickness MM 0.3 0.24 - 0.42 / 0.22 - 0.42 Aortic Root Diameter MM 3.0 cm AV Cusp Separation MM 1.4 cm DOPPLER AI Peak Velocity 172.0 cm/s AI Peak Gradient 11.8 mmHg AI Pressure Half Time 813.0 ms MV Area PHT 3.7 cm LV E' Lateral Velocity 10.2 cm/s LV E' Septal Velocity 9.7 cm/s TR Peak Velocity 262.0 cm/s TR Peak Gradient 27.5 mmHg Right Atrial Pressure 10.0 mmHg Pulmonary Artery Systolic Pressu 37.5 mmHg Right Ventricular Systolic Press 37.5 mmHg PV Peak Velocity 73.3 cm/s PV Peak Gradient 2.1 mmHg FINDINGS LEFT VENTRICLE The left ventricular systolic function is hyperdynamic with an estimated ejection fraction in the ra nge of 65- 70%. Normal left ventricular size. Wall thickness is normal. No regional wall motion abnormalities are present. RIGHT VENTRICLE Normal right ventricular size and systolic function. LEFT ATRIUM The left atrial size is normal. RIGHT ATRIUM The right atrial size is normal. ATRIAL SEPTUM Normal atrial septal thickness without atrial level shunting by limited color doppler interrogation. AORTA The aortic root and proximal ascending aorta are normal in size on limited imaging. MITRAL VALVE Structurally normal mitral valve. No mitral valve stenosis. Trace mitral valve regurgitation. AORTIC VALVE Trileaflet aortic valve. Aortic valve sclerosis is present. Trace aortic valve regurgitation. TRICUSPID VALVE Structurally normal tricuspid valve. There is trace tricuspid valve regurgitation. The estimated pulmonary arterial pressure is 37.5 mmHg. PULMONARY VALVE No pulmonary valve regurgitation or stenosis. VESSELS The inferior vena cava is normal in size. PERICARDIUM No pericardial effusion. Ethan Shea DO (Electronically Signed) Final Date:07 January 2018 18:49
[2018-01-07] MEDS ORDERED: PEG 3350/E-Lyte Soln 4000 ML Bottle PO ONE (20:00)
[2018-01-08] MEDS: Chlorhexidine Gluconate 2% 1 Pack (2 Cloths) TOPICAL SCH (04:36)
[2018-01-08 06:20] LABS: Hematocrit 30.6 % (39.0-51.0); Hemoglobin 10.2 gm/dL (13.0-17.0); Mean Corpuscular HGB Conc 33.5 % (32.0-36.0); Mean Corpuscular Hemoglobin 31.5 pg (27.0-34.0); Mean Corpuscular Volume 93.8 fL (80.0-100.0); Mean Platelet Volume 7.5 fL (7.0-11.0); Platelet Count 234 th/mm3 (150-450); Red Blood Count 3.26 mil/mm3 (4.50-5.90); Red Cell Distribution Width 16.5 % (11.6-17.2); White Blood Count 9.3 th/mm3 (4.0-11.0)
[2018-01-08 06:41] LABS: Alanine Aminotransferase 30 U/L (12-78); Albumin 2.7 g/dL (3.4-5.0); Alkaline Phosphatase 62 U/L (45-117); Anion Gap 9 meq/L (5-15); Aspartate Aminotransferase 23 U/L (15-37); Blood Urea Nitrogen 18 mg/dL (7-18); Calcium 8.1 mg/dL (8.5-10.1); Carbon Dioxide 26.3 meq/L (21.0-32.0); Chloride 110 meq/L (98-107); Glomerular Filtration Rate 74 mL/min (>89); Glucose,Random 112 mg/dL (74-106); Magnesium 2.2 mg/dL (1.5-2.5); Potassium 3.8 meq/L (3.5-5.1); Sodium 145 meq/L (136-145); Total Protein 5.6 g/dL (6.4-8.2)
--- NOTE | 2018-01-08 08:53 | P.PN ---
Subjective Interval history: Seen in his bedroom, no complaint, Status post EGD performed 01/07/18 EGD with biopsy, found Irregular Z line and Mild Gastritis recommended supportive care, proceed with Colonoscopy later today, will transfer to [facility] and follow for recommendations by GI specialist for discharge. No nausea, vomit or diarrhea. complaint of pain on his bilateral chest areas due to rib fractures. Physical Exam Vital signs: Vital Signs 01/07/18 09:00 01/07/18 09:01 01/07/18 10:00 Temperature Pulse Rate 75 77 84 Respiratory Rate 11 L 12 19 Blood Pressure 99/51 L 90/53 L Pulse Oximetry 95 95 94 L 01/07/18 11:00 01/07/18 12:00 01/07/18 13:00 Temperature Pulse Rate 78 83 77 Respiratory Rate Blood Pressure 101/58 L 104/62 99/58 L Pulse Oximetry 95 95 94 L 01/07/18 14:00 01/07/18 14:17 01/07/18 15:00 Temperature Pulse Rate 84 82 Respiratory Rate 16 Blood Pressure 93/64 L 95/61 L Pulse Oximetry 96 94 L 01/07/18 16:00 01/07/18 17:00 01/07/18 17:17 Temperature Pulse Rate 82 78 Respiratory Rate 39 H 11 L 16 Blood Pressure 105/62 99/58 L Pulse Oximetry 94 L 95 01/07/18 18:37 01/07/18 18:45 01/07/18 19:00 Temperature 98.6 F 98.6 F Pulse Rate 104 H 88 Respiratory Rate 20 16 Blood Pressure 153/58 H 120/60 Pulse Oximetry 94 L 95 95 01/07/18 20:00 01/07/18 22:40 01/08/18 00:00 Temperature 98.7 F 98.8 F Pulse Rate 95 H 93 H Respiratory Rate 24 27 H Blood Pressure 118/73 131/72 Pulse Oximetry 96 92 L 96 01/08/18 02:00 01/08/18 04:00 01/08/18 06:00 Temperature 98.5 F Pulse Rate 98 H 129 H 109 H Respiratory Rate 24 Blood Pressure 147/92 H Pulse Oximetry 97 Intake & Output 01/07/18 01/08/18 01/08/18 18:59 06:59 18:59 Intake Total 450 / 450 1000 / 1000 Output Total 850 / 850 600 / 600 Balance -400 / -400 400 / 400 Weight 76.6 kg Intake: IV 250 / 250 1000 / 1000 D5W/Normal Saline Inj 1,000 ML 1000 / 1000 @ 70 mls/hr IV.CONT .[id number] [facility] Rx#:[id number] NS Inj 250 ML @ 15 mls/hr IV. 250 / 250 SIG ONCE [facility] Rx#:[id number] Anesthesia Amount 200 / 200 Output: Urine 850 / 850 600 / 600 Other: Date of Last Bowel Movement 01/05/20 01/08/18 # Bowel Movements 1 # Incontinent Bowel Movements 1 Narrative: GENERAL: This is a well-nourished, well-developed patient, in no apparent distress. ecchymosis on his submandibular area. CARDIOVASCULAR: Irregular rate and rhythm. RESPIRATORY: Clear to auscultation. Breath sounds equal bilaterally. No wheezes , rales, or rhonchi. GASTROINTESTINAL: Abdomen soft, non-tender, nondistended. Normal active bowel sounds MUSCULOSKELETAL: Extremities without clubbing, cyanosis, or edema. NEURO: Alert & Oriented x4 to person, place, time, situation. Moves all ext x4 Results - Labs CBC & Chem 7: 01/08/18 04:15 01/08/18 04:15 Laboratory Results - last 24 hr 01/08/18 01/08/18 04:15 04:15 WBC 9.3 RBC 3.26 L Hgb 10.2 L Hct 30.6 L MCV 93.8 MCH 31.5 MCHC 33.5 RDW 16.5 Plt Count 234 MPV 7.5 Sodium 145 Potassium 3.8 Chloride 110 H Carbon Dioxide 26.3 Anion Gap 9 BUN 18 Creatinine 1.02 Estimated GFR 74 L Random Glucose 112 H Calcium 8.1 L Magnesium 2.2 Total Bilirubin 0.6 AST 23 ALT 30 Alkaline Phosphatase 62 Total Protein 5.6 L Albumin 2.7 L - Imaging Impressions Liver Ultrasound 01/07/18 00:00 CONCLUSION: 1. Small hyperechoic liver mass. Recommend further elective characterization with contrasted hepatic MRI when clinically feasible 2. Gallstones 3. Nonobstructing small right renal stone. - Procedures Date of procedure: 01/07/18 Pre-op diagnosis: GI bleed, anemia Procedure: PROCEDURE PERFORMED EGD with biopsy INDICATION FOR PROCEDURE GI bleed, anemia, melena FINDINGS: The esophagus this appeared to be unremarkable except for the irregular Z line this was biopsied The stomach there was some patchy erythema in the antrum but no ulcerations and no erosions no blood or bleeding antral biopsies were taken for further evaluation The duodenum this was normal IMPRESSION: Irregular Z line Mild gastritis PLAN: Await biopsies Continue with current supportive care Monitor labs Proceed with colonoscopy tomorrow Assessment and Plan - Plan 62-year-old male admitted with syncopal episode dizziness lightheadedness decreased p.o. appetite chills with black tarry stools Syncopal episode secondary to GI bleed Upper GI bleed. Start patient on IV Protonix Status post EGD performed 01/07/18 EGD with biopsy, found Irregular Z line and Mild Gastritis recommended supportive care, proceed with Colonoscopy later today Symptomatic anemia improved after blood transfusion now Hemoglobin 10.2 Chronic atrial fibrillation-in RVR - response to anemia and DTs History of CAD status post stent in October 2016 Hypertension Per patient he is on furosemide 20 mg 1-1/2 tablet daily, simvastatin, Jeri, amlodipine as outpatient.- Hold meds for now Hold aspirin for now. Inventory Control Coordinator is Dr. Cook as OP. as indicated by doctor Corinne Heart rate improved after blood transfusion EtOH abuse with DTs Likely with an underlying alcoholic liver disease.- He was seen by a GI specialist and outpatient 4-6 weeks ago and was told that he had a "fatty liver" start CIWA protocol. no signs of withdrawal. SIRS-secondary to DTs, GIB Leukocytosis Check lactic acid. Check blood cultures Recheck CBC in am . UA chest x-ray negative Check ultrasound for ascites. Acute kidney injury - Improved Chest pain due to rib fracture Left ninth and right seventh ribs. Teds and SCDs for DVT prophylaxis. Chemical prophylaxis contraindicated with GI bleed. Code Status: Full code. Discussed Condition With: patient and nurse Mr. Lobo Discharge Planning: Once cleared by GI specialist.
[2018-01-08] MEDS: Pantoprazole Inj 40 MG Vial IV.PUSH SCH (08:57)
[2018-01-08] MEDS ORDERED: Lidocaine PF 1% Inj 5 ML Syringe INFILTRATN ONE (12:00)
[2018-01-08] MEDS ORDERED: Phenylephrine/NS 1000 MCG/10ML Syringe IV.PUSH ONE (12:00)
[2018-01-08] MEDS: Dextrose 5%/NaCl 0.9% Inj 1,000 ML IV.CONT SCH (12:30)
--- NOTE | 2018-01-08 15:32 | P.PCN ---
Date of procedure: 01/08/18 Pre-op diagnosis: GI bleed, anemia Procedure: PROCEDURE PERFORMED Colonoscopy with snare polypectomy INDICATION FOR PROCEDURE GI bleed PROCEDURE: The procedure, risks and benefits were discussed with Patient/POA and informed consent was obtained. Anesthesia sedated Patient with Diprivan. Patient was placed in the left lateral decubitus position. Colonoscopy: The Pentax videoscope was introduced through the rectum and advanced to cecum where the ileocecal valve and appendiceal orifice were identified. Retroflexion was performed in the rectum. Colonic prep was good FINDINGS: Colonic withdrawal time greater than 6 minutes. As the scope was slowly withdrawn colonic mucosa was carefully inspected patient was noted to have 5 polyps first was a small one in the descending colon this was excised using cold snare technique but was lost the second was medium sized in the proximal transverse colon this was excised using cold snare technique and retrieved there was another one medium sized in the sigmoid region that was also excised cold snare technique and retrieved and there were 2 more in the rectum one small and one medium sized both sessile polyps were excised cold snare technique and retrieved the patient was also noted to have severe diverticulosis of the sigmoid region retroflexion in the rectum did reveal small to medium size internal hemorrhoids rectal examination otherwise unremarkable ESTIMATED BLOOD LOSS: Minimal SPECIMENS REMOVED: Colon biopsies COMPLICATIONS: None IMPRESSION: Colon polyps Sigmoid diverticulosis Internal hemorrhoids PLAN: Await biopsies High-fiber diet Colonoscopy in 5 years Continue with current supportive care Monitor labs and if all is stable tomorrow patient may be discharged from a GI standpoint Anesthesia: MAC Surgeon: Marquis Porter Condition: stable Disposition: no change
[2018-01-09] MEDS: Dextrose 5%/NaCl 0.9% Inj 1,000 ML IV.CONT SCH (03:22)
[2018-01-09] MEDS: Chlorhexidine Gluconate 2% 1 Pack (2 Cloths) TOPICAL SCH (03:23)
--- NOTE | 2018-01-09 08:51 | P.PN ---
Subjective Interval history: Seen in his bedroom, no complaint, Status post EGD performed 01/07/18 EGD with biopsy, found Irregular Z line and Mild Gastritis recommended supportive care, proceed with Colonoscopy later today, will transfer to [facility] and follow for recommendations by GI specialist for discharge. complaint of pain on his bilateral chest areas due to rib fractures. 01/09: Seen in his bedroom, stable no complaint, no nausea, vomit or diarrhea, hemoglobin 9.9 stable will go home and follow with PCP in three days and with GI specialist in one week. Physical Exam Vital signs: Vital Signs 01/08/18 08:53 01/08/18 09:00 01/08/18 09:30 Temperature Pulse Rate 101 H 94 H Respiratory Rate 26 H 20 Blood Pressure 144/65 H 135/65 Pulse Oximetry 96 92 L 94 L 01/08/18 10:00 01/08/18 10:30 01/08/18 11:00 Temperature Pulse Rate 97 H 93 H 89 Respiratory Rate 22 18 17 Blood Pressure 143/67 H 135/67 127/85 Pulse Oximetry 93 L 95 95 01/08/18 11:30 01/08/18 12:00 01/08/18 12:30 Temperature Pulse Rate 92 H 90 90 Respiratory Rate 19 17 13 Blood Pressure 141/78 H 125/73 126/82 Pulse Oximetry 95 94 L 94 L 01/08/18 13:00 01/08/18 13:30 01/08/18 14:06 Temperature Pulse Rate 88 77 103 H Respiratory Rate 12 13 22 Blood Pressure 114/69 128/74 130/86 Pulse Oximetry 94 L 95 93 L 01/08/18 15:30 01/08/18 15:45 01/08/18 15:58 Temperature 98.1 F Pulse Rate 97 H 93 H 102 H Respiratory Rate 19 19 Blood Pressure 120/58 L 131/61 Pulse Oximetry 88 L 93 L 89 L 01/08/18 15:59 01/08/18 16:00 01/08/18 16:30 Temperature Pulse Rate 102 H 119 H 90 Respiratory Rate 24 33 H 24 Blood Pressure 139/84 134/72 141/64 H Pulse Oximetry 89 L 86 L 95 01/08/18 17:00 01/08/18 17:30 01/08/18 18:00 Temperature Pulse Rate 97 H 107 H 100 H Respiratory Rate 27 H 29 H 25 H Blood Pressure 148/74 H 138/79 136/116 H Pulse Oximetry 92 L 92 L 94 L 01/08/18 18:30 01/08/18 19:00 01/08/18 19:03 Temperature Pulse Rate 100 H 103 H 106 H Respiratory Rate 19 28 H 24 Blood Pressure 160/81 H 160/72 H Pulse Oximetry 95 94 L 92 L 01/08/18 19:30 01/08/18 20:00 01/08/18 20:44 Temperature 98.4 F Pulse Rate 109 H 107 H Respiratory Rate 30 H 22 22 Blood Pressure 186/79 H 136/80 Pulse Oximetry 89 L 98 01/08/18 22:00 01/09/18 00:00 01/09/18 02:00 Temperature 98.6 F Pulse Rate 108 H 98 H 99 H Respiratory Rate 13 Blood Pressure 151/70 H Pulse Oximetry 90 L 01/09/18 03:00 Temperature 97.8 F Pulse Rate 81 Respiratory Rate 18 Blood Pressure 142/75 H Pulse Oximetry 93 L Intake & Output 01/08/18 01/09/18 01/09/18 18:59 06:59 18:59 Intake Total 1000 / 1000 1206 / 1206 Output Total 900 / 900 Balance 100 / 100 1206 / 1206 Intake: IV 1000 / 1000 1206 / 1206 D5W/Normal Saline Inj 1,000 ML 1000 / 1000 1206 / 1206 @ 70 mls/hr IV.CONT .[id number] ON LICENSE OF [facility] Rx#:[id number] Output: Urine 900 / 900 Other: Date of Last Bowel Movement 01/08/18 01/08/18 Narrative: GENERAL: This is a well-nourished, well-developed patient, in no apparent distress. ecchymosis on his submandibular area. CARDIOVASCULAR: Irregular rate and rhythm. RESPIRATORY: Clear to auscultation. Breath sounds equal bilaterally. No wheezes , rales, or rhonchi. GASTROINTESTINAL: Abdomen soft, non-tender, nondistended. Normal active bowel sounds MUSCULOSKELETAL: Extremities without clubbing, cyanosis, or edema. NEURO: Alert & Oriented x4 to person, place, time, situation. Moves all ext x4 Results - Labs CBC & Chem 7: 01/09/18 10:30 01/08/18 04:15 - Procedures Date of procedure: 01/07/18 Pre-op diagnosis: GI bleed, anemia Procedure: PROCEDURE PERFORMED EGD with biopsy INDICATION FOR PROCEDURE GI bleed, anemia, melena FINDINGS: The esophagus this appeared to be unremarkable except for the irregular Z line this was biopsied The stomach there was some patchy erythema in the antrum but no ulcerations and no erosions no blood or bleeding antral biopsies were taken for further evaluation The duodenum this was normal IMPRESSION: Irregular Z line Mild gastritis PLAN: Await biopsies Continue with current supportive care Monitor labs Proceed with colonoscopy tomorrow Assessment and Plan - Plan 62-year-old male admitted with syncopal episode dizziness lightheadedness decreased p.o. appetite chills with black tarry stools Syncopal episode secondary to GI bleed Upper GI bleed. Was on Protonix IV, Status post EGD performed 01/07/18 EGD with biopsy, found Irregular Z line and Mild Gastritis recommended supportive care, Status Post Colonoscopy and biopsy 02/08/18, with Impression of Colon Polyps, Sigmoid Diverticulosis Internal Hemorrhoids, recommended for follow up of biopsies, high fiber diet, Colonoscopy in five years, okay to discharge Symptomatic anemia improved after blood transfusion now Hemoglobin 9.9 stable. Chronic atrial fibrillation-in RVR - response to anemia and DTs History of CAD status post stent in October 2016 Hypertension Per patient he is on furosemide 20 mg 1-1/2 tablet daily, simvastatin, Jeri, amlodipine as outpatient.- Hold meds for now Hold aspirin for now. Reference Test Clerk is Dr. Cook as OP. is been controlled to low without any anti hypertensive medicine will go off this medicines and follow by PCP in three days to titrate or re start this medicines. EtOH abuse with DTs Likely with an underlying alcoholic liver disease.- He was seen by a GI specialist and outpatient 4-6 weeks ago and was told that he had a "fatty liver" start CIWA protocol. no signs of withdrawal. strongly recommended to stop drinking alcohol. SIRS-secondary to DTs, GIB Improved off antibiotics. Acute kidney injury - Improved Chest pain due to rib fracture Left ninth and right seventh ribs. Teds and SCDs for DVT prophylaxis. Chemical prophylaxis contraindicated with GI bleed. Code Status: Full code. Discussed Condition With: Patient and nurse Discharge Planning: Discharge Home today again strongly recommended to stop drinking behavior Poor prognosis if continue drinking alcohol.
[2018-01-09 11:29] LABS: Hematocrit 29.5 % (39.0-51.0); Hemoglobin 9.9 gm/dL (13.0-17.0); Mean Corpuscular HGB Conc 33.7 % (32.0-36.0); Mean Corpuscular Hemoglobin 32.2 pg (27.0-34.0); Mean Corpuscular Volume 95.4 fL (80.0-100.0); Mean Platelet Volume 7.4 fL (7.0-11.0); Platelet Count 252 th/mm3 (150-450); Red Blood Count 3.09 mil/mm3 (4.50-5.90); Red Cell Distribution Width 16.5 % (11.6-17.2); White Blood Count 9.9 th/mm3 (4.0-11.0)
[2018-01-09] MEDS: Pantoprazole Inj 40 MG Vial IV.PUSH SCH (13:28)
--- NOTE | 2018-01-09 13:57 | P.DS ---
Date of admission: 01/06/18 10:51 Primary care physician: Casey Egan III, MD Attending physician on discharge: Abrahan Thorne Anticipated date of discharge: 01/09/18 Brief History from admission: Patient is a 62-year-old male with known history of CAD status post stent in October 2016, hypertension, history of alcoholic liver disease "hepatitis" who lives with his and apparently for the past 2 days now has not been feeling well described as dizziness lightheadedness with decreased p.o. appetite and chills and fever sensation. Patient also states has been having diarrhea with very black stools for the past 2 days now. This a.m. when he got up and step stepped out of the porch suddenly felt dizzy and passed out. Prior to this initially patient felt nauseated and states that he vomited some small amounts of fluid. EMS was called and patient was brought in here and admitted for further evaluation and management. On initial evaluation also with fever tachycardic with chilly sensation. Patient denies any urinary symptoms denies any cough denies headache. On further history patient states that he was placed on Plavix and was told to stop about a week ago per patient "does not need it anymore". On exam - on telemetry was in atrial fibrillation rhythm patient is not aware of this but nurse confirmed with family who states that patient has history of chronic A. fib Patient drinks alcohol-whiskey water 8-10 glasses every night on a daily basis "I enjoy it as a habit". His last drink was day before yesterday as he stopped he started feeling sick. He also admits to occasional marijuana cocaine use and used the day before he got sick. DS: Diagnosis - Discharge Diagnosis (1) Anemia Status: Acute (2) GI bleed Status: Acute (3) Syncope Status: Acute DS: Medications - Discharge Medications Prescriptions: oxycodone-acetaminophen 1 tab PO Q6H PRN #14 tab PRN Reason: pain 4-10 DS: Summary Hospital Course: Seen in his bedroom, no complaint, Status post EGD performed 01/07/18 EGD with biopsy, found Irregular Z line and Mild Gastritis recommended supportive care, proceed with Colonoscopy later today, will transfer to [facility] and follow for recommendations by GI specialist for discharge. complaint of pain on his bilateral chest areas due to rib fractures. 01/09: Seen in his bedroom, stable no complaint, no nausea, vomit or diarrhea, hemoglobin 9.9 stable will go home and follow with PCP in three days and with GI specialist in one week. - Procedures Date of procedure: 01/07/18 Pre-op diagnosis: GI bleed, anemia Procedure: PROCEDURE PERFORMED EGD with biopsy INDICATION FOR PROCEDURE GI bleed, anemia, melena FINDINGS: The esophagus this appeared to be unremarkable except for the irregular Z line this was biopsied The stomach there was some patchy erythema in the antrum but no ulcerations and no erosions no blood or bleeding antral biopsies were taken for further evaluation The duodenum this was normal IMPRESSION: Irregular Z line Mild gastritis PLAN: Await biopsies Continue with current supportive care Monitor labs Proceed with colonoscopy tomorrow Assessment and Plan - Plan 62-year-old male admitted with syncopal episode dizziness lightheadedness decreased p.o. appetite chills with black tarry stools Syncopal episode secondary to GI bleed Upper GI bleed. Was on Protonix IV, Status post EGD performed 01/07/18 EGD with biopsy, found Irregular Z line and Mild Gastritis recommended supportive care, Status Post Colonoscopy and biopsy 02/08/18, with Impression of Colon Polyps, Sigmoid Diverticulosis Internal Hemorrhoids, recommended for follow up of biopsies, high fiber diet, Colonoscopy in five years, okay to discharge Symptomatic anemia improved after blood transfusion now Hemoglobin 9.9 stable. Chronic atrial fibrillation-in RVR - response to anemia and DTs History of CAD status post stent in October 2016 Hypertension Per patient he is on furosemide 20 mg 1-1/2 tablet daily, simvastatin, Jeri, amlodipine as outpatient.- Hold meds for now Hold aspirin for now. Key Bed Installer is Dr. Cook as OP. is been controlled to low without any anti hypertensive medicine will go off this medicines and follow by PCP in three days to titrate or re start this medicines. EtOH abuse with DTs Likely with an underlying alcoholic liver disease.- He was seen by a GI specialist and outpatient 4-6 weeks ago and was told that he had a "fatty liver" start CIWA protocol. no signs of withdrawal. strongly recommended to stop drinking alcohol. SIRS-secondary to DTs, GIB Improved off antibiotics. Acute kidney injury - Improved Chest pain due to rib fracture Left ninth and right seventh ribs. Teds and SCDs for DVT prophylaxis. Chemical prophylaxis contraindicated with GI bleed. Code Status: Full code. Discussed Condition With: Patient and nurse Discharge Planning: Discharge Home today again strongly recommended to stop drinking behavior Poor prognosis if continue drinking alcohol. - Time Spent with Patient Total time spent providing and/or coordinating discharge services: Less than 30 minutes - Quality: VTE Deep Vein Thrombosis/Pulmonary Embolism Present on Admission: No Exam Vital signs: Vital Signs 01/08/18 14:06 01/08/18 15:30 01/08/18 15:45 Temperature 98.1 F Pulse Rate 103 H 97 H 93 H Respiratory Rate 22 19 19 Blood Pressure 130/86 120/58 L 131/61 Pulse Oximetry 93 L 88 L 93 L 01/08/18 15:58 01/08/18 15:59 01/08/18 16:00 Temperature Pulse Rate 102 H 102 H 119 H Respiratory Rate 24 33 H Blood Pressure 139/84 134/72 Pulse Oximetry 89 L 89 L 86 L 01/08/18 16:30 01/08/18 17:00 01/08/18 17:30 Temperature Pulse Rate 90 97 H 107 H Respiratory Rate 24 27 H 29 H Blood Pressure 141/64 H 148/74 H 138/79 Pulse Oximetry 95 92 L 92 L 01/08/18 18:00 01/08/18 18:30 01/08/18 19:00 Temperature Pulse Rate 100 H 100 H 103 H Respiratory Rate 25 H 19 28 H Blood Pressure 136/116 H 160/81 H Pulse Oximetry 94 L 95 94 L 01/08/18 19:03 01/08/18 19:30 01/08/18 20:00 Temperature 98.4 F Pulse Rate 106 H 109 H 107 H Respiratory Rate 24 30 H 22 Blood Pressure 160/72 H 186/79 H 136/80 Pulse Oximetry 92 L 89 L 98 01/08/18 20:44 01/08/18 22:00 01/09/18 00:00 Temperature 98.6 F Pulse Rate 108 H 98 H Respiratory Rate 22 13 Blood Pressure 151/70 H Pulse Oximetry 90 L 01/09/18 02:00 01/09/18 03:00 01/09/18 08:00 Temperature 97.8 F 96.6 F L Pulse Rate 99 H 81 90 Respiratory Rate 18 20 Blood Pressure 142/75 H 126/71 Pulse Oximetry 93 L 91 L 01/09/18 11:56 Temperature 97.9 F Pulse Rate 110 H Respiratory Rate 22 Blood Pressure 154/71 H Pulse Oximetry 91 L Intake & Output 01/08/18 01/09/18 01/09/18 18:59 06:59 18:59 Intake Total 1000 / 1000 1206 / 1206 Output Total 900 / 900 Balance 100 / 100 1206 / 1206 Intake: IV 1000 / 1000 1206 / 1206 D5W/Normal Saline Inj 1,000 ML 1000 / 1000 1206 / 1206 @ 70 mls/hr IV.CONT .[id number] [facility] Rx#:[id number] Output: Urine 900 / 900 Other: Date of Last Bowel Movement 01/08/18 01/08/18 Narrative: GENERAL: This is a well-nourished, well-developed patient, in no apparent distress. ecchymosis on his submandibular area. CARDIOVASCULAR: Irregular rate and rhythm. RESPIRATORY: Clear to auscultation. Breath sounds equal bilaterally. No wheezes , rales, or rhonchi. GASTROINTESTINAL: Abdomen soft, non-tender, nondistended. Normal active bowel sounds MUSCULOSKELETAL: Extremities without clubbing, cyanosis, or edema. NEURO: Alert & Oriented x4 to person, place, time, situation. Moves all ext x4 Results Procedures completed during hospitalization: Date of procedure: 01/07/18 Pre-op diagnosis: GI bleed, anemia Procedure: PROCEDURE PERFORMED EGD with biopsy INDICATION FOR PROCEDURE GI bleed, anemia, melena FINDINGS: The esophagus this appeared to be unremarkable except for the irregular Z line this was biopsied The stomach there was some patchy erythema in the antrum but no ulcerations and no erosions no blood or bleeding antral biopsies were taken for further evaluation The duodenum this was normal IMPRESSION: Irregular Z line Mild gastritis PLAN: Await biopsies Continue with current supportive care Monitor labs Proceed with colonoscopy tomorrow Status post Colonoscopy 01/08/18, Diverticulosis. Pending studies at discharge: Pending at discharge 01/07/18 07:30 Surgical [PTH] Routine 01/08/18 07:27 Surgical [PTH] Routine Labs on day of discharge: Labs from last 24 hours 01/09/18 10:30 WBC 9.9 RBC 3.09 L Hgb 9.9 L Hct 29.5 L MCV 95.4 MCH 32.2 MCHC 33.7 RDW 16.5 Plt Count 252 MPV 7.4 - Impressions ITS Impressions Ribs X-Ray 01/06/18 00:00 CONCLUSION: Fracturing of the left ninth and right seventh ribs. Head CT 01/06/18 09:11 CONCLUSION: No acute intracranial abnormality is identified. . Chest X-Ray 01/06/18 09:14 CONCLUSION: 1. Background changes suggesting a severe emphysema with interstitial changes at the lung bases. 2. Questionable 14 mm nodule in the right lower lung zone. This should be further evaluated with chest CT at some point to evaluate if this represents a true nodule versus overlying bronchovascular structures. Abdomen Ultrasound 01/06/18 13:25 CONCLUSION: 1. Ultrasound examination of the abdomen demonstrates no ascites. Liver Ultrasound 01/07/18 00:00 CONCLUSION: 1. Small hyperechoic liver mass. Recommend further elective characterization with contrasted hepatic MRI when clinically feasible 2. Gallstones 3. Nonobstructing small right renal stone. Discharge Plan - Discharge Disposition Patient Disposition: 01 Discharge Home - Discharge Condition Condition: Stable - Discharge Order Discharge Orders: Discharge Order (Routine); Ordered 01/09/18 Ordered By: Abrahan Thorne - Discharge Details Anticipated Discharge Date: 01/06/18 Discharge Comment: Follow with PCP in three days to start titration or to re start blood pressure medicine if needed. - Physicians Team Primary Care Provider: Casey Egan III Attending Provider: Abrahan Thorne Other Providers: Marquis Porter MD
--- NOTE | 2018-01-09 16:47 | P.PNGI ---
Subjective Interval history: Comfortable in bed tolerating intake no further bleeding denies any pain Physical Exam Vital signs: Vital Signs 01/08/18 17:00 01/08/18 17:30 01/08/18 18:00 Temperature Pulse Rate 97 H 107 H 100 H Respiratory Rate 27 H 29 H 25 H Blood Pressure 148/74 H 138/79 136/116 H Pulse Oximetry 92 L 92 L 94 L 01/08/18 18:30 01/08/18 19:00 01/08/18 19:03 Temperature Pulse Rate 100 H 103 H 106 H Respiratory Rate 19 28 H 24 Blood Pressure 160/81 H 160/72 H Pulse Oximetry 95 94 L 92 L 01/08/18 19:30 01/08/18 20:00 01/08/18 20:44 Temperature 98.4 F Pulse Rate 109 H 107 H Respiratory Rate 30 H 22 22 Blood Pressure 186/79 H 136/80 Pulse Oximetry 89 L 98 01/08/18 22:00 01/09/18 00:00 01/09/18 02:00 Temperature 98.6 F Pulse Rate 108 H 98 H 99 H Respiratory Rate 13 Blood Pressure 151/70 H Pulse Oximetry 90 L 01/09/18 03:00 01/09/18 08:00 01/09/18 11:56 Temperature 97.8 F 96.6 F L 97.9 F Pulse Rate 81 90 110 H Respiratory Rate 18 20 22 Blood Pressure 142/75 H 126/71 154/71 H Pulse Oximetry 93 L 91 L 91 L Intake & Output 01/08/18 01/09/18 01/09/18 18:59 06:59 18:59 Intake Total 1000 / 1000 1206 / 1206 Output Total 900 / 900 Balance 100 / 100 1206 / 1206 Intake: IV 1000 / 1000 1206 / 1206 D5W/Normal Saline Inj 1,000 ML 1000 / 1000 1206 / 1206 @ 70 mls/hr IV.CONT .[id number] [facility] Rx#:[id number] Output: Urine 900 / 900 Other: Date of Last Bowel Movement 01/08/18 01/08/18 - Constitutional no acute distress - Routine HEENT Exam Head: Present: normocephalic Eye: Present: EOMI ENT: Present: mucous membranes moist - Routine Neck Exam Present: supple - Routine Respiratory Exam Present: CTA bilaterally - Routine Cardiovascular Exam Present: RRR - Routine Abdominal Exam Present: soft. Absent: tenderness, distended, rebound - Routine Extremities Exam Absent: cyanosis, clubbing, edema Results - Labs CBC & Chem 7: 01/09/18 10:30 01/08/18 04:15 Laboratory Results - last 24 hr 01/09/18 10:30 WBC 9.9 RBC 3.09 L Hgb 9.9 L Hct 29.5 L MCV 95.4 MCH 32.2 MCHC 33.7 RDW 16.5 Plt Count 252 MPV 7.4 - Procedures Date of procedure: 01/07/18 Pre-op diagnosis: GI bleed, anemia Procedure: PROCEDURE PERFORMED EGD with biopsy INDICATION FOR PROCEDURE GI bleed, anemia, melena FINDINGS: The esophagus this appeared to be unremarkable except for the irregular Z line this was biopsied The stomach there was some patchy erythema in the antrum but no ulcerations and no erosions no blood or bleeding antral biopsies were taken for further evaluation The duodenum this was normal IMPRESSION: Irregular Z line Mild gastritis PLAN: Await biopsies Continue with current supportive care Monitor labs Proceed with colonoscopy tomorrow Status post Colonoscopy 01/08/18, Diverticulosis. Assessment and Plan - Plan - GIB/melena, anemia symptomatic- came in with syncopal episode, hypotension and diarrhea with very black stools for the past 2 days now. Labs revealed hgb of 8.6, receiving blood currently. last black BM was this morning. He denies previous hx of GIB or ulcers. He takes ASA, no NSAIDs. Admits to 8-10 drinks of whisky a night. He never had EGD/ colonoscopy before. Hemodynamically stable DX include PUD, varices, gastritis or others - Anemia- Secondary to acute GI bleed - Leukocytosis- Likely reactive - Hx of fatty liver- alcohol abuse, Liver enzymes consistent with alcohol intake , no ascites present on US - pmh of CAD status post stent in October 2016, A-fib but hasn't taking for few days, hypertension per attending Most likely patient had diverticular bleed Plan: -Okay to advance diet as tolerated preferably low-salt -Okay for discharge from a GI standpoint - Alcohol cessation Follow-up with GI post discharge Not much to add at this point from a GI perspective we will sign off
== END 2018-01-09 18:21 | disposition left against medical advice (07) ==
LOC: NEPE 08:37 → NEDA 10:51 → N07 13:14 → HIMC 16:40 → H7ONC 01-09 03:05
PROVIDERS: ADMIT Internal Medicine; ATTEND Internal Medicine
PROC: PANENDO (2018-01-07 18:00)
PROC: COLONOS (2018-01-08 14:49)